=== PATIENT | female | born 1950 | race Caucasian/White ===

== ENCOUNTER 2019-08-05 11:02 | Day surgery (SDC) | payer MEDICARE, SELFPAY ==
[2019-08-03 17:00] VITALS: BMI 29.2
[2019-08-05] VITALS (15 sets, daily range): BP systolic 109–143; BP diastolic 80–110; PULSE 119–122; RESP 10–22; TEMP 36.6; O2SAT 94–100; BMI 29.5
--- NOTE | 2019-08-05 05:52 | ECG_ITS ---
Measurements Intervals [place] Rate: 122 P: TN: 0 QRS: -11 QRSD: 86 T: 0 QT: 151 QTc: 215 Interpretive Statements ATRIAL FLUTTER/TACHYCARDIA WITH RAPID VENTRICULAR RESPONSE DELAYED PRECORDIAL R/S TRANSITION INFERIOR INFARCT, AGE INDETERMINATE NONSPECIFIC ST & T-WAVE ABNORMALITY- ANT/LAT LEADS ABNORMAL ECG Electronically Signed On 08-05-2019 7:23:12 ARCHEOLOGIST CLASSICAL by Layton Crespo D.O.
--- NOTE | 2019-08-05 07:22 | SUR.PREOP ---
PATIENT ARRIVES TO [facility] ROOM 7 FOR UMU/CV WITH DR. KAY, PRE EKG TAKEN AND PATIENT REMAINS IN AFIB. ORIENTED TO UNIT, PROCEDURE EXPLAINED, ALL QUESTIONS ANSWERED, IV STARTED, LABS DRAWN, VITALS OBTAINED AND CONSENT SIGNED.
[2019-08-05 07:41] LABS: Mean Corpuscular HGB Conc 34.2 g/dl (32-36); Mean Corpuscular Hemoglobin 32.2 pg (26-34); Mean Corpuscular Volume 94.1 fl (80-100); Mean Platelet Volume 10.6 fl (7.4-10.4); Platelet Count Result 262 k/mm3 (150-375); Red Blood Count 4.04 M/mm3 (4.2-5.4); Red Cell Distribution Width 13.1 % (11.5-14.5); White Blood Count 8.5 K/mm3 (4.5-10.0)
[2019-08-05 07:54] LABS: INR 2.2; Prothrombin Time 23.7 Seconds (11.1-14.7)
[2019-08-05 08:10] LABS: Blood Urea Nitrogen 10 mg/dL (7-17); Calcium 8.9 mg/dL (8.4-10.2); Carbon Dioxide 25 mmol/L (22-30); Chloride 106 mmol/L (98-107); Estimated CRCL calculation 106 ml/min; Estimated Glomerular Filt Rate > 60; Glucose 137 mg/dL (65-105); Magnesium 1.6 mg/dL (1.6-2.3); Potassium 3.6 mmol/L (3.4-5.0); Sodium 138 mmol/L (137-145)
--- NOTE | 2019-08-05 09:32 | WPDMODSED ---
Patient Data Diagnosis: Atrial flutter with rapid ventricular response Present Complaint: fatigue History and physical update History of present illness: Patient is a very pleasant 69-year-old female with a history of mitral stenosis and regurgitation status post mechanical mitral valve replacement June 2003, diabetes mellitus, hypertension, paroxysmal atrial fibrillation on warfarin with goal INR 2.5-3.5 managed by primary care physician who recently developed atrial flutter with rapid ventricular response after complaining of increasing fatigue and rapid heart rate/palpitations. Sotalol was increased to 80 mg twice daily however atrial flutter persisted. Patient then referred for transesophageal echocardiogram guided elective electrical cardioversion in attempt restore sinus rhythm. Patient has been subtherapeutic for the past month when INR is 2.0, 2.2 and more recently 2.8. INR today was 2.2. She remains in atrial flutter today. Review of systems: No fevers, chills, falls, bleeding, dizziness, lightheadedness, significant change in her weight or diet. No vision changes, headache, bright red blood per rectum, melena, rashes hair skin or nail changes, heat or cold intolerance. No dysphagia, hemoptysis, dysuria/hematuria. No abdominal pain focal weakness or imbalance. Impression: Symptomatic atrial flutter with rapid ventricular response Mechanical mitral valve replacement Chronic anticoagulation subtherapeutic with INR 2.2 History of paroxysmal atrial fibrillation and atrial flutter on sotalol Hypertension Plan of care: Transesophageal echocardiogram guided cardioversion Bridging enoxaparin given subtherapeutic INR in light of her mechanical mitral valve with goal 2.5-3.5. Further recommendation to follow post UMU +/- cardioversion. Procedure to be performed/Plan: Transesophageal echocardiogram guided elective electrical cardioversion Allergies Allergy/AdvReac Type Severity Reaction Status Date / Time codeine Allergy Unknown Verified 04/07/19 13:35 ibuprofen Allergy Unknown Verified 04/07/19 13:36 levofloxacin Allergy Unknown Verified 04/06/10 12:39 Quinolones Allergy Unknown Verified 04/06/10 12:40 Home Medications Medication Instructions Recorded Confirmed Type atorvastatin [Lipitor] 10 mg PO DAILY 08/03/19 08/03/19 History diphenhydramine-acetaminophen 1 tablet PO HS PRN 08/03/19 08/03/19 History fluticasone propionate [Allergy 1 spray INTRANASAL BID PRN 08/03/19 08/03/19 History Relief (fluticasone)] lisinopril 20 mg PO DAILY 08/03/19 08/03/19 History metformin [Glucophage] 850 mg PO BID 08/03/19 08/03/19 History sotalol 80 mg PO BID 08/03/19 08/03/19 History warfarin 3 mg PO 3XW 08/03/19 08/03/19 History warfarin 4 mg PO 4XW 08/03/19 08/03/19 History Current Medications: Active Medications Sodium Chloride (Normal Saline Iv) 1,000 mls @ 30 mls/hr IV CONT .Q24H ALEX Sedation/Anesthesia: No previous sedation/anesthesia problems (including family history). [facility] Family History Family History Sibling Patient's sister is in good health Patient's brother is in good health Family history of malignant neoplasm Family history of type 2 diabetes mellitus Family history of pulmonary embolism Patient's sister is Patient's brother is Acute myocardial infarction Mother Patient's mother is , Onset Age: 96 Grandparent Family history of malignant neoplasm, Onset Age: 59 Social History Social History Smoking status: Never smoker Second hand tobacco smoke exposure: No Alcohol intake: never Gender identity (if verbalized by the patient): Female Physical Exam Pre Procedural Exam: Normal: Appearance, Eyes, Ears, Nose, Neck (Supple, normal range of motion), Throat (Posterior hypopharynx clear, nonerythematous), Airway (Nor
[2019-08-05] MEDS: ENOXAPARIN 80 MG/0.8 ML SYRINGE SUB-Q (09:35)
--- NOTE | 2019-08-05 09:47 | WPDHPUPDATE1 ---
History and Physical Update Update Date/Time: 08/05/19 09:47 History and Physical has been reviewed, including an updated exam of the patient. There are NO changes in the patient's condition. Risks, benefits, and alternatives have been discussed and questions answered. Patient agrees to proceed with procedure.
--- NOTE | 2019-08-05 12:14 | WPDTECDV ---
UMU with Cardioversion Date of procedure: 08/05/19 Procedure Type: Transesophageal echocardiogram guided elective electrical cardioversion Diagnosis: Atrial flutter with rapid ventricular response Indications: Atrial flutter with rapid ventricular response Description of Procedure: Brief history present illness: Patient is a pleasant 69-year-old female with a history of mechanical mitral valve replacement, paroxysmal atrial fibrillation on sotalol and warfarin, with complaints of progressive fatigue and palpitations noted be in atrial flutter with rapid ventricular response at 120 beats per minute 2:1 AV block referred for transesophageal echocardiogram-guided elective electrical cardioversion in attempt to restore sinus rhythm. Procedure in detail: After verbal and written informed consent was obtained the patient risks, benefits, and alternatives explained in detail the patient agreed to proceed with the plan of care as outlined above. Patient was evaluated at bedside in the [facility] procedure room. On examination, neck was supple with normal range of motion, no restrictions to opening of the oral cavity, jaw angle and posterior hypopharynx was clear. Lungs were clear to auscultation. Patient was placed in appropriate 30 to 45 degree angle in a supine, slight left lateral decubitus position. Patient was monitored throughout the study with telemetry, oxygen saturation, end-tidal CO2 monitoring, blood pressure, heart rate, and respirations. Anterior and posterior defibrillator pads placed in the appropriate positions. The posterior hypopharynx was then locally anesthetized using repeated administration of Hurricaine spray as well as gargled viscous lidocaine. After local anesthetic of the posterior hypopharynx was achieved and the oral bite block placed, moderate sedation was administered. Through the oral bite block, the transesophageal echocardiogram probe was advanced into the posterior hypopharynx and into the esophagus easily and without complication. Multiple, multiplanar echocardiographic images were obtained in multiple standard re-projections. Pulsed wave, continuous-wave, and color-flow Doppler were utilized in conjunction with this study. At the conclusion of the study, the transesophageal echocardiogram probe was removed easily and without complication. Patient tolerated the procedure well without difficulty. Patient was in atrial flutter throughout the study. Of note, her INR today was 2.2 which is subtherapeutic raising risk for thromboembolism given associated atrial flutter and mechanical mitral valve. As such, she was given full-dose enoxaparin 1 milligram/kilogram and procedure delayed for nearly 2 hours prior to proceeding with UMU. Patient will be bridged with enoxaparin until her INR is at least 2.5. We discussed this with patient's primary care physician office who has been managing her warfarin and they wish for us to take over management of her anticoagulation. Elective electrical cardioversion: Cardioversion was deferred at a concern for occlusion of the left atrial appendage either of with thrombus and prior to confirmation of possibility of left atrial appendage ligation. Complications: None Sedation: Moderate Sedation/Anesthesia administration: Patient denied previous intolerance or complications with anesthesia/sedation. Please see sedation note for documentation of the pre-procedure physical examination. As noted above, after adequate local anesthesia of the posterior hypopharynx was achieved, a total of 3mg intravenous Versed and a total of 50mcg intravenous Fentanyl in multiple divided doses was utilized for moderate sedation. Sedation start time was 1218 and end time was 1305 for a total of 47 minutes [id number] intra-procedure time. Sedation was administered by a qualified observer Merry Carmichael RN under my supervision with intra-procedure [id number] observation and management throughout the entir
--- NOTE | 2019-08-05 13:21 | SUR.PHASEI ---
PATIENT REMAINS IN [facility] ROOM [address] KAY, UNABLE TO PERFORM CARDIOVERSION. DR. KAY HAS REQUESTED RECORDS FROM PREVIOUS SURGERY IN [place]. PATIENT IS COMFORTABLE AND RESTING.
--- NOTE | 2019-08-05 15:44 | SUR.PHASEI ---
1530-pt given d/c orders and new medication orders. Questions answered and verbalized understanding. AOx4. Pharmacy called to assure prescriptions had been properly received and they indeed have. PIV removed. Taken via wheelchair to waiting vehicle. No distress noted at time of departure.
== END 2019-08-05 14:00 | disposition home or self-care (01) ==
PROVIDERS: PCP Family Medicine; Visit Provider Internal Medicine Cardiovascular Disease
PROC: 5A2204Z Restoration of Cardiac Rhythm, Single (ICD-10-PCS; principal; 2019-08-05 08:30)
PROC: (CPT 93312; 2019-08-05 08:30)
DX: I48.92 Unspecified atrial flutter (principal); I48.0 Paroxysmal atrial fibrillation; I10 Essential (primary) hypertension; E11.9 Type 2 diabetes mellitus without complications; Z79.01 Long term (current) use of anticoagulants; Z95.2 Presence of prosthetic heart valve
CPT/HCPCS: 36415; 80048; 83735; 85027; 85610; 92960; 93005; 93312; 93320; 93325; J1650; J2250; J3010; J7030

== ENCOUNTER 2019-12-27 13:17 | Outpatient (CLI) | payer MEDICARE, SELFPAY ==
[2019-12-27 13:47] LABS: Hematocrit 39.4 % (37.0-47.0); Hemoglobin 12.9 g/dL (12.0-15.0); Mean Corpuscular HGB Conc 32.7 g/dl (32-36); Mean Corpuscular Hemoglobin 30.9 pg (26-34); Mean Corpuscular Volume 94.3 fl (80-100); Mean Platelet Volume 9.9 fl (7.4-10.4); Platelet Count Result 246 k/mm3 (150-375); Red Blood Count 4.18 M/mm3 (4.2-5.4); White Blood Count 7.4 K/mm3 (4.5-10.0)
[2019-12-27 14:06] LABS: Alanine Aminotransferase 16 U/L (4-35); Albumin Level 4.5 g/dL (3.5-5.1); Alkaline Phosphatase 40 U/L (38-126); Aspartate Amino Transferase 30 U/L (14-36); Bilirubin,Total 0.5 mg/dL (0.2-1.3); Blood Urea Nitrogen 9 mg/dL (7-17); Calcium 9.2 mg/dL (8.4-10.2); Carbon Dioxide 30 mmol/L (22-30); Chloride 104 mmol/L (98-107); Cholesterol 183 mg/dL (0-200); Estimated Glomerular Filt Rate > 60; Glucose 179 mg/dL (65-105); HDL Direct 54 mg/dL; Potassium 4.3 mmol/L (3.4-5.0); Sodium 138 mmol/L (137-145); Triglycerides 280 mg/dL (<150)
[2019-12-27 14:16] LABS: LDL Cholesterol Direct 85 mg/dL
== END 2019-12-27 13:18 | disposition home or self-care (01) ==
PROVIDERS: PCP Family Medicine; Visit Provider Family Medicine
DX: I10 Essential (primary) hypertension (principal); E11.9 Type 2 diabetes mellitus without complications; E78.5 Hyperlipidemia, unspecified
CPT/HCPCS: 36415; 80053; 80061; 83036; 85027

== ENCOUNTER 2020-05-01 10:32 | Outpatient (CLI) | payer MEDICARE, SELFPAY ==
[2020-05-01 11:01] LABS: Basophils Absolute Auto 0.1 K/mm3 (0.0-0.1); Basophils Percent Auto 0.7 % (0.2-1.2); Eosinophils Absolute Auto 0.5 K/mm3 (0-0.3); Eosinophils Percent Auto 7.1 % (0-4.4); Hematocrit 38.6 % (37.0-47.0); Hemoglobin 12.9 g/dL (12.0-15.0); Immature Granulocyte Absolute 0.03 K/mm3 (0.00-0.031); Immature Granulocyte Percent A 0.4 % (0-0.5); Lymphocytes Absolute Auto 2.35 K/mm3 (0.9-3.2); Lymphocytes Percent Auto 31.6 % (18.3-44.2); Mean Corpuscular HGB Conc 33.4 g/dl (32-36); Mean Corpuscular Hemoglobin 31.3 pg (26-34); Mean Corpuscular Volume 93.7 fl (80-100); Mean Platelet Volume 10.2 fl (7.4-10.4); Monocytes Absolute Auto 0.5 K/mm3 (0.1-0.6); Monocytes Percent Auto 7.1 % (2.6-8.5); Neutrophils Absolute Auto 3.9 K/mm3 (1.3-6.7); Neutrophils Percent Auto 53.1 % (45.5-73.1); Platelet Count Result 263 k/mm3 (150-375); Red Blood Count 4.12 M/mm3 (4.2-5.4); Red Cell Distribution Width 12.8 % (11.5-14.5); White Blood Count 7.4 K/mm3 (4.5-10.0)
[2020-05-01 11:18] LABS: Alanine Aminotransferase 19 U/L (4-35); Albumin Level 4.5 g/dL (3.5-5.1); Alkaline Phosphatase 43 U/L (38-126); Anion Gap 10 mmol/L (8-16); Aspartate Amino Transferase 28 U/L (14-36); Bilirubin,Total 0.4 mg/dL (0.2-1.3); Blood Urea Nitrogen 15 mg/dL (7-17); Carbon Dioxide 24 mmol/L (22-30); Chloride 103 mmol/L (98-107); Cholesterol 184 mg/dL (0-200); Estimated Glomerular Filt Rate > 60; Glucose 206 mg/dL (65-105); HDL Direct 57 mg/dL; Potassium 4.5 mmol/L (3.4-5.0); Sodium 137 mmol/L (137-145); Triglycerides 269 mg/dL (<150)
[2020-05-01 11:29] LABS: LDL Cholesterol Direct 83 mg/dL
== END 2020-05-01 10:33 | disposition home or self-care (01) ==
PROVIDERS: PCP Family Medicine; Visit Provider Family Medicine
DX: E78.5 Hyperlipidemia, unspecified (principal); I10 Essential (primary) hypertension; E11.40 Type 2 diabetes mellitus with diabetic neuropathy, unspecified
CPT/HCPCS: 36415; 80053; 80061; 83036; 85025

== ENCOUNTER 2020-08-01 13:22 | Outpatient (CLI) | payer MEDICARE, SELFPAY ==
[2020-08-01 13:47] LABS: Hemoglobin A1C 7.2 % (<5.7)
== END 2020-08-01 13:23 | disposition home or self-care (01) ==
LOC: ANHLAB 13:23
PROVIDERS: PCP Nurse Practitioner Family; Visit Provider Nurse Practitioner Family
DX: E11.9 Type 2 diabetes mellitus without complications (principal)
CPT/HCPCS: 36415; 83036

== ENCOUNTER 2021-02-02 13:54 | Outpatient (CLI) | payer MEDICARE, MEDICAID, SELFPAY ==
[2021-02-02 14:33] LABS: Hematocrit 38.1 % (37.0-47.0); Hemoglobin 12.7 g/dL (12.0-15.0); Mean Corpuscular HGB Conc 33.3 g/dl (32-36); Mean Corpuscular Hemoglobin 31.4 pg (26-34); Mean Corpuscular Volume 94.3 fl (80-100); Mean Platelet Volume 10.5 fl (7.4-10.4); Platelet Count Result 280 k/mm3 (150-375); Red Blood Count 4.04 M/mm3 (4.2-5.4); Red Cell Distribution Width 12.8 % (11.5-14.5); White Blood Count 8.4 K/mm3 (4.5-10.0)
[2021-02-02 14:45] LABS: Alanine Aminotransferase 17 U/L (4-35); Albumin Level 4.6 g/dL (3.5-5.1); Alkaline Phosphatase 35 U/L (38-126); Anion Gap 7 mmol/L (8-16); Aspartate Amino Transferase 32 U/L (14-36); Bilirubin,Total 0.4 mg/dL (0.2-1.3); Blood Urea Nitrogen 12 mg/dL (7-17); Calcium 9.7 mg/dL (8.4-10.2); Carbon Dioxide 24 mmol/L (22-30); Chloride 107 mmol/L (98-107); Cholesterol 158 mg/dL (0-200); Estimated Glomerular Filt Rate > 60; Glucose 111 mg/dL (65-105); HDL Direct 54 mg/dL; Potassium 4.3 mmol/L (3.4-5.0); Sodium 138 mmol/L (137-145); Triglycerides 273 mg/dL (<150)
[2021-02-02 14:55] LABS: LDL Cholesterol Direct 59 mg/dL
[2021-02-02 15:10] LABS: Hemoglobin A1C 6.4 % (<5.7)
[2021-02-02 17:00] LABS: Creatinine Urine 160.6 mg/dL
[2021-02-02 17:05] LABS: MALB Creatinine Ratio 31.1 mg/g (0-30)
== END 2021-02-02 13:55 | disposition home or self-care (01) ==
PROVIDERS: PCP Family Medicine; Visit Provider Nurse Practitioner Family
DX: E11.9 Type 2 diabetes mellitus without complications (principal); I10 Essential (primary) hypertension; E78.5 Hyperlipidemia, unspecified
CPT/HCPCS: 36415; 80053; 80061; 82043; 83036; 85027

== ENCOUNTER 2021-05-28 14:08 | Outpatient (CLI) | payer MEDICARE, MEDICAID, SELFPAY ==
[2021-05-28 14:54] LABS: Anion Gap 9 mmol/L (8-16); Blood Urea Nitrogen 13 mg/dL (7-17); Calcium 9.3 mg/dL (8.4-10.2); Carbon Dioxide 25 mmol/L (22-30); Chloride 106 mmol/L (98-107); Estimated Glomerular Filt Rate > 60; Glucose 114 mg/dL (65-110); Potassium 4.7 mmol/L (3.4-5.0); Sodium 140 mmol/L (137-145)
== END 2021-05-28 14:09 | disposition home or self-care (01) ==
PROVIDERS: PCP Family Medicine; Visit Provider Internal Medicine Cardiovascular Disease
DX: I15.2 Hypertension secondary to endocrine disorders (principal); E11.59 Type 2 diabetes mellitus with other circulatory complications; E11.69 Type 2 diabetes mellitus with other specified complication; E78.5 Hyperlipidemia, unspecified
CPT/HCPCS: 36415; 80048

== ENCOUNTER 2021-09-19 14:13 | Outpatient (CLI) | payer MEDICARE, MEDICAID, SELFPAY ==
--- NOTE | ~2021-09-19 | DEXA_ITS ---
Bone Density Report Name: ASHU ELI Age: 71 Sex: Female Ethnicity: White Date of : 1950 Indication: osteopenia; height loss; prior fracture; hysterectomy; postmenopausal Referring Provider: Sylvia Zuniga Study: Bone densitometry was performed. Exam Date: September 19, 2021 Accession number: [id number] Bone Density: Region BMD T-score Z-score Classification AP Spine (L1, L3) 1.037 0.2 2.4 Normal Femoral Neck (Left) 0.709 -1.3 0.7 Osteopenia Total Hip (Left) 0.863 -0.7 1.0 Normal Total Hip Bilateral Avg 0.802 -1.1 0.5 Osteopenia Femoral Neck (Right) 0.606 -2.2 -0.2 Osteopenia Total Hip (Right) 0.741 -1.6 0.0 Osteopenia World Health Organization criteria for BMD impression classify patients as: Normal (T-score at or above -1.0), Osteopenia (T-score between -1.0 and -2.5), or Osteoporosis (T-score at or below -2.5). 10-year Fracture Risk(1): Major Osteoporotic Fracture 20% Hip Fracture 4.6% Reported Risk Factors: [place] (), Neck BMD=0.606, BMI=29.1, previous fracture (1) FRAX(R) Version 3.08. Fracture probability calculated for an untreated patient. Fracture probability may be lower if the patient has received treatment. Previous Exams: Region Exam Age BMD T-score BMD Change BMD Change Date g/cm2 vs Baseline vs Previous AP Spine(L1, L3) 09/19/2021 71 1.037 0.2 0.011(1.1%)# 0.091(9.7%)# 01/15/2006 55 0.945 -0.6 -0.081(-7.9%)* -0.081(-7.9%)* 11/14/2003 53 1.026 0.1 Total Hip(Left) 09/19/2021 71 0.863 -0.7 -0.042(-4.6%)# -0.014(-1.6%)# 01/15/2006 55 0.876 -0.5 -0.028(-3.1%)* -0.028(-3.1%)* 11/14/2003 53 0.904 -0.3 Total Hip(Right) 09/19/2021 71 0.741 -1.6 -0.105(-12.4%) -0.072(-8.8%)# 01/15/2006 55 0.813 -1.1 -0.033(-3.9%)* -0.033(-3.9%)* 11/14/2003 53 0.846 -0.8 *Denotes significance at 95% confidence level, LSC for AP Spine = 0.022 g/cm2, LSC for Total Hip = 0.027 g/cm2 Clinical Information Provided by Patient: Has had a low trauma fracture Has the following medical conditions: Hysterectomy Patient maximum height was 65 Menopause Age: 41 Drinks caffeinated beverages Onset of menses at age 10 Number of children 0 Impression: The patient has low bone mass, based on the Right Femoral Neck T-score. The patient has an estimated ten-year risk of hip fracture of 4.6% and an estimated ten-year risk of major fracture of 20%, based on the WHO FRAX algorithm. The patient
--- NOTE | ~2021-09-19 | MM_ITS ---
EXAMINATION: MM screening girish BI w destinee HISTORY: Screening mammogram, family history of breast cancer in her sister. TECHNIQUE: Craniocaudal and mediolateral oblique 3-D tomosynthesis images were obtained and synthetic 2-D images were generated. CAD analysis was submitted and interpreted. COMPARISON: 07/22/2019, 08/13/2016, 10/18/2014 BREAST PARENCHYMAL COMPOSITION: There are scattered areas of fibroglandular density. FINDINGS: Scattered benign-appearing calcifications are present. There is no evidence of suspicious m ass, calcification, or architectural distortion to suggest malignancy in either breast. There has bee n no suspicious interval change. IMPRESSION: 1. No mammographic evidence of malignancy. 2. Recommend routine screening mammography in one year. BI-RADS Category 2: Benign finding(s). Reviewed, dictated and finalized at location A. ING MACHINE SETTER
== END 2021-09-19 14:14 | disposition home or self-care (01) ==
LOC: ANHIMG 14:19
PROVIDERS: PCP Family Medicine; Visit Provider Nurse Practitioner Family
DX: Z12.31 Encounter for screening mammogram for malignant neoplasm of breast (principal); Z78.0 Asymptomatic menopausal state; M85.852 Other specified disorders of bone density and structure, left thigh; M85.851 Other specified disorders of bone density and structure, right thigh
CPT/HCPCS: 77063; 77067; 77080

== ENCOUNTER 2022-07-24 14:48 | Outpatient (CLI) | payer MEDICARE, MEDICAID, SELFPAY ==
[2022-07-24 15:12] LABS: Basophils Absolute Auto 0.1 K/mm3 (0.0-0.1); Basophils Percent Auto 0.8 % (0.2-1.2); Eosinophils Absolute Auto 0.3 K/mm3 (0-0.3); Hematocrit 37.6 % (37.0-47.0); Hemoglobin 12.4 g/dL (12.0-15.0); Immature Granulocyte Absolute 0.03 K/mm3 (0.00-0.031); Immature Granulocyte Percent A 0.4 % (0-0.5); Lymphocytes Absolute Auto 2.09 K/mm3 (0.9-3.2); Lymphocytes Percent Auto 28.2 % (18.3-44.2); Mean Corpuscular Hemoglobin 31.9 pg (26-34); Mean Corpuscular Volume 96.7 fl (80-100); Mean Platelet Volume 10.1 fl (7.4-10.4); Monocytes Absolute Auto 0.6 K/mm3 (0.1-0.6); Monocytes Percent Auto 7.8 % (2.6-8.5); Neutrophils Absolute Auto 4.4 K/mm3 (1.3-6.7); Neutrophils Percent Auto 58.8 % (45.5-73.1); Platelet Count Result 252 k/mm3 (150-375); Red Blood Count 3.89 M/mm3 (4.2-5.4); White Blood Count 7.4 K/mm3 (4.5-10.0)
[2022-07-24 15:20] LABS: Alanine Aminotransferase 31 U/L (6-35); Albumin Level 4.8 g/dL (3.5-5.1); Alkaline Phosphatase 43 U/L (38-126); Anion Gap 15 mmol/L (8-16); Aspartate Amino Transferase 39 U/L (14-36); Bilirubin,Total 0.5 mg/dL (0.2-1.3); Blood Urea Nitrogen 15 mg/dL (7-17); Calcium 9.8 mg/dL (8.4-10.2); Carbon Dioxide 26 mmol/L (22-30); Chloride 100 mmol/L (98-107); Cholesterol 199 mg/dL (0-200); Estimated Glomerular Filt Rate > 60; Glucose 135 mg/dL (65-110); HDL Direct 54 mg/dL; Potassium 4.9 mmol/L (3.4-5.0); Sodium 141 mmol/L (137-145); Triglycerides 318 mg/dL (<150)
[2022-07-24 15:23] LABS: Hemoglobin A1C 7.1 % (<5.7)
[2022-07-24 15:31] LABS: LDL Cholesterol Direct 80 mg/dL
[2022-07-24 15:34] LABS: Creatinine Urine 115.5 mg/dL
[2022-07-24 15:35] LABS: MALB Creatinine Ratio 9.4 mg/g (0-30); Microalbumin Urine Random 10.9 mg/L (0-16.7)
== END 2022-07-24 14:49 | disposition home or self-care (01) ==
LOC: ANHLAB 14:51
PROVIDERS: PCP Family Medicine; Visit Provider Nurse Practitioner Family
DX: E11.9 Type 2 diabetes mellitus without complications (principal); I10 Essential (primary) hypertension; E78.5 Hyperlipidemia, unspecified
CPT/HCPCS: 36415; 80053; 80061; 82043; 83036; 85025

== ENCOUNTER 2023-03-04 15:13 | Outpatient (CLI) | payer MEDICARE, MEDICAID, SELFPAY ==
[2023-03-04 19:46] LABS: Alanine Aminotransferase 21 U/L (6-35); Albumin Level 4.4 g/dL (3.5-5.1); Alkaline Phosphatase 45 U/L (38-126); Anion Gap 10 mmol/L (8-16); Aspartate Amino Transferase 34 U/L (14-36); Bilirubin,Total 0.6 mg/dL (0.2-1.3); Blood Urea Nitrogen 18 mg/dL (7-17); Calcium 9.2 mg/dL (8.4-10.2); Carbon Dioxide 26 mmol/L (22-30); Chloride 103 mmol/L (98-107); Estimated Glomerular Filt Rate > 60; Glucose 192 mg/dL (65-110); Potassium 4.7 mmol/L (3.4-5.0); Sodium 139 mmol/L (137-145)
[2023-03-04 19:52] LABS: Hemoglobin A1C 7.4 % (<5.7)
== END 2023-03-04 15:14 | disposition home or self-care (01) ==
LOC: ANHGOSHLAB 15:14
PROVIDERS: PCP Family Medicine; Visit Provider Family Medicine
DX: E11.9 Type 2 diabetes mellitus without complications (principal); I10 Essential (primary) hypertension
CPT/HCPCS: 36415; 80053; 83036

== ENCOUNTER 2024-07-19 15:16 | Outpatient (CLI) | payer MEDICARE, MEDICAID, SELFPAY ==
[2024-07-19 19:45] LABS: Basophils Absolute Auto 0.1 K/mm3 (0.0-0.1); Basophils Percent Auto 0.9 % (0.2-1.2); Eosinophils Absolute Auto 0.3 K/mm3 (0-0.3); Eosinophils Percent Auto 3.6 % (0-4.4); Hematocrit 40.1 % (37.0-47.0); Hemoglobin 13.8 g/dL (12.0-15.0); Immature Granulocyte Absolute 0.01 K/mm3 (0.00-0.031); Immature Granulocyte Percent A 0.1 % (0-0.5); Lymphocytes Absolute Auto 1.65 K/mm3 (0.9-3.2); Lymphocytes Percent Auto 18.1 % (18.3-44.2); Mean Corpuscular HGB Conc 34.4 g/dl (32-36); Mean Corpuscular Hemoglobin 33.3 pg (26-34); Mean Corpuscular Volume 96.6 fl (80-100); Mean Platelet Volume 10.4 fl (7.4-10.4); Monocytes Absolute Auto 0.7 K/mm3 (0.1-0.6); Monocytes Percent Auto 7.4 % (2.6-8.5); Neutrophils Absolute Auto 6.4 K/mm3 (1.3-6.7); Neutrophils Percent Auto 69.9 % (45.5-73.1); Platelet Count Result 237 k/mm3 (150-375); Red Blood Count 4.15 M/mm3 (4.2-5.4); White Blood Count 9.1 K/mm3 (4.5-10.0)
[2024-07-19 19:54] LABS: Alanine Aminotransferase 30 U/L (6-35); Albumin Level 4.6 g/dL (3.5-5.1); Alkaline Phosphatase 55 U/L (38-126); Anion Gap 10 mmol/L (4-12); Aspartate Amino Transferase 40 U/L (14-36); Bilirubin,Total 0.8 mg/dL (0.2-1.3); Blood Urea Nitrogen 14 mg/dL (7-17); Calcium 9.7 mg/dL (8.4-10.2); Carbon Dioxide 27 mmol/L (22-30); Chloride 104 mmol/L (98-107); Cholesterol 206 mg/dL (0-200); Estimated Glomerular Filt Rate > 60; Glucose 204 mg/dL (65-110); HDL Direct 54 mg/dL; Potassium 4.2 mmol/L (3.4-5.0); Sodium 141 mmol/L (137-145); Triglycerides 336 mg/dL (<150)
[2024-07-19 20:06] LABS: LDL Cholesterol Direct 77 mg/dL
[2024-07-19 20:33] LABS: Creatinine Urine 58.6 mg/dL
[2024-07-19 20:43] LABS: MALB Creatinine Ratio 20.1 mg/g (0-30); Microalbumin Urine Random 11.8 mg/L (0-16.7)
[2024-07-19 21:18] LABS: Hemoglobin A1C 7.1 % (<5.7)
== END 2024-07-19 15:17 | disposition home or self-care (01) ==
LOC: ANHGOSHLAB 15:17
PROVIDERS: PCP Nurse Practitioner Family; Visit Provider Nurse Practitioner Family
DX: E78.5 Hyperlipidemia, unspecified (principal); E11.9 Type 2 diabetes mellitus without complications; E03.9 Hypothyroidism, unspecified; I10 Essential (primary) hypertension
CPT/HCPCS: 36415; 80053; 80061; 82043; 83036; 84443; 85025

== ENCOUNTER 2024-09-22 13:50 | Outpatient (CLI) | payer MEDICARE, MEDICAID, SELFPAY ==
--- NOTE | 2024-09-22 14:30 | NEURO_ITS ---
Impression: # Known diabetic complains of weakness of hands. ? # Bilateral ulnar neuropathy across the elbows. ? # Needle/EMG exam abnormal with denervation changes in bilateral ADM and 1st DI. ? # Clinical correlation recommended. ?Nerve Conduction Studies Anti Sensory Summary Table ?Stim Site NR Peak (ms) P-T Amp (?V) Site1 Site2 Delta-P (ms) Dist (cm) Jairo (m/s) Left Median Anti Sensory (2-3nd Digit) Wrist ? 3.3 23.2 Wrist 2-3nd Digit 3.3 14.0 42 Wrist ? 3.5 52.0 Wrist 2-3nd Digit 3.3 14.0 42 Right Median Anti Sensory (2-3nd Digit) Wrist ? 3.6 15.4 Wrist 2-3nd Digit 3.6 14.0 39 Wrist ? 3.7 24.6 Wrist 2-3nd Digit 3.6 14.0 39 Left Radial Anti Sensory (Base 1st Digit) Wrist ? 2.3 11.6 Wrist Base 1st Digit 2.3 0.0 Right Radial Anti Sensory (Base 1st Digit) Wrist ? 2.1 15.2 Wrist Base 1st Digit 2.1 0.0 Left Ulnar Anti Sensory (5th Digit) Wrist ? 2.9 28.9 Wrist 5th Digit 2.9 14.0 48 Right Ulnar Anti Sensory (5th Digit) Wrist ? 6.7 18.6 Wrist 5th Digit 6.7 14.0 21 Motor Summary Table ?Stim Site NR Onset (ms) O-P Amp (mV) Site1 Site2 Delta-0 (ms) Dist (cm) Jairo (m/s) Left Median Motor (Abd Poll Brev) Wrist ? 4.0 2.7 Elbow Wrist 5.0 28.0 56 Elbow ? 9.0 1.9 Right Median Motor (Abd Poll Brev) Wrist ? 4.1 3.6 Elbow Wrist 4.6 27.0 59 Elbow ? 8.7 3.3 Left Ulnar Motor (Abd Dig Minimi) Wrist ? 3.3 3.3 A Elbow Wrist 10.9 30.0 28 A Elbow ? 14.2 1.6 B Elbow Wrist 4.0 22.0 55 B Elbow ? 7.3 1.7 Right Ulnar Motor (Abd Dig Minimi) Wrist ? 4.4 0.9 A Elbow Wrist 7.8 30.0 38 A Elbow ? 12.2 0.1 B Elbow Wrist 3.3 19.0 58 B Elbow ? 7.7 0.3 F Wave Studies ?NR F-Lat (ms) L-R F-Lat (ms) Left Median (Mrkrs) (Abd Poll Brev) ? 28.17 0.29 Right Median (Mrkrs) (Abd Poll Brev) ? 27.88 0.29 Left Ulnar (Mrkrs) (Abd Dig Min) ? 25.56 0.87 Right Ulnar (Mrkrs) (Abd Dig Min) ? 26.43 0.87 EMG ?Side Muscle Nerve Root Ins Act Fibs Amp Dur Recrt Comment Right 1stDorInt Ulnar C8-T1 Nml Nml Incr >12ms +1 Right Ext Indicis Radial (Post Int) C7-8 Nml Nml Nml Nml Nml Right Ext Digitorum Radial (Post Int) C7-8 Nml Nml Nml Nml Nml Right BrachioRad Radial C5-6 Nml Nml Nml Nml Nml Right PronatorTeres Median C6-7 Nml Nml Nml Nml Nml Right Abd Poll Brev Median C8-T1 Nml Nml Nml Nml Nml Right ABD Dig Min Ulnar C8-T1 Nml Nml Incr >12ms +1 Left 1stDorInt Ulnar C8-T1 Nml Nml Incr >12ms +1 Left Ext Indicis Radial (Post Int) C7-8 Nml Nml Nml Nml Nml Left Ext Digitorum Radial (Post Int) C7-8 Nml Nml Nml Nml Nml Left BrachioRad Radial C5-6 Nml Nml Nml Nml Nml Left PronatorTeres Median C6-7 Nml Nml Nml Nml Nml Left Abd Poll Brev Median C8-T1 Nml Nml Nml Nml Nml Left ABD Dig Min Ulnar C8-T1 Nml Nml Incr >12ms +1 MTDD
== END 2024-09-22 13:51 | disposition home or self-care (01) ==
LOC: ANHNEURO 13:52
PROVIDERS: PCP Nurse Practitioner Family; Visit Provider Family Medicine
DX: R20.2 Paresthesia of skin (principal); R20.0 Anesthesia of skin; G56.23 Lesion of ulnar nerve, bilateral upper limbs; R94.131 Abnormal electromyogram [EMG]
CPT/HCPCS: 95886; 95911

== ENCOUNTER 2025-03-16 00:56 | Day surgery (SDC) | payer MEDICARE, MEDICAID, SELFPAY ==
[2025-03-14 11:11] VITALS: BMI 27.3
--- NOTE | 2025-03-14 11:28 | PC.NURSE ---
Report to the Outpatient Waiting Room, entrance under the green pavilion located off [facility], at time __10:00am on date ___03/16/25____. Planned Procedure Time: _12:00pm .? Time changes happen often and if your time is changed the preop area will call you the afternoon before. - You and your visitor will be asked to self-screen and do not enter if you have any COVID symptoms. Please call surgeon if you need to reschedule. - A mask is optional within the hospital at this time. Patients may have- No food or drink from midnight until time of surgery and no smoking, or chewing tobacco (or any form of nicotine). No chewing gum, candy or mints. Take only the following medications with a SIP of water on the morning of surgery: __Sotalol, Gabapentin and Tylenol if needed DO NOT STOP ANY OF YOUR OTHER PRESCRIPTION MEDICATIONS PRIOR TO SURGERY EXCEPT THE FOLLOWING Hold all vitamins and supplements for 3 days per anesthesiologist. Medications to discontinue per physician Coumadin (Held since last week ) and Bridging preop- last dose of Enoxaparin the AM the day before Surgery ____ Date to take last dose____Enoxaparin 03/15/25 at 0900am Please no make-up, nail malay, hairspray, perfume, deodorant, or body powder the day of surgery.? No jewelry (including any body piercings) or valuables the day of surgery, leave them at home.? Please take a shower or bath the night before, or the morning of, surgery with an antibacterial soap.? Wear comfortable, loose fitting clothing.? HIBICLEANSE pt will use also as needed - Jewelry must be removed prior to entering the operating room.? Rings and piercings that are not removed may be cut off. - The hospital will not accept responsibility for valuables.? - Please leave all valuables, including medications, at home the day of surgery. If you are going home after surgery, a licensed regional tanker truck driver must drive you home.? - NO public transportation without another adult if you receive anesthesia. - We recommend that an adult stay with you for 24 hours following discharge. - We also recommend that you do not drive, make important decision, drink alcoholic beverages, or take any drugs that were not prescribed by your health care provider for at least 24 hours after your discharge time. Follow any additional instructions given to you from your surgeon. Telephone instructions given to __Patient and asked if any additional questions and then verbalized understanding. Patient advised to call surgeon office or pre surgery nurse liaison [phone] if any additional questions.
--- OUTSIDE RECORDS SUMMARY | 2025-03-16 01:03 | XMS_ITS | Encounter Summary ---
Author Organization [facility] Healthcare Address [address] [place] [id number] Care Team Providers Care Transitional Care Manager Name Role Phone Amado Wray MD Primary Care Provider Encounter Details Date Type Department Care Team ([facility] st Contact Info) Description 01/25/2025 Orders Only [facility] [place] [address] [place] [address] Scanning, Provider Social History Tobacco Use Types Packs/Day Years Used Date Smoking Tobacco: Never Smokeless Tobacco: Never Alcohol Use Standard Drinks/Week Comments No 0 (1 standard drink = 0.6 oz pur e alcohol) AUDIT-C Answer Date Recorded Q1: How often do you have a drink containing alcohol? Never 08/06/2024 Q2: How many drinks containi ng alcohol do you have on a typical day when you are drinking? Patient does not drink Q3: How often do you have si x or more drinks on one occasion? Never 08/06/2024 Personal Safety Answer Date Recorded Have you ever been in or are you currently in a harmful physical or emotional relationship or is someone making you feel afraid or unsafe? 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
--- OUTSIDE RECORDS SUMMARY | 2025-03-16 01:03 | XMS_ITS | Encounter Summary ---
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 Gender Identity Not on file Sexual Orientation Not on file documented as of this encounter Plan of Treatment Not on file documented as of this encounter Procedures Procedure Name Priority Date/Time Associated Diagnosis Comments SCAN - LABS 01/18/2025 documented in this encounter Results * SCAN - LABS (01/18/2025) us Provider Scanning Edited Result - Final documented in this encounter Visit Diagnoses Not on filedocumented in this encounter Care Teams Automatic Serging Machine Operator Relationship Specialty Start Date End Date Amado Wray MD PCP - General Family Practice 03/08/22 documented as of this encounter
--- OUTSIDE RECORDS SUMMARY | 2025-03-16 01:04 | XMS_ITS | Encounter Summary ---
Author Organization [facility] Address [address] [place] [address] Care Team Providers Care Cigar Head Puncher Name Role Phone Amado Wray MD Primary Care Provider Jose De Jesus Mcgee MD Unavailable [phone] Encounter Details Date Type Department Care Team (Late st Contact Info) Description 03/14/2025 Orders Only [facility] [address] [place] [address] Sylvia Zuniga, TECHNICAL MAINTENANCE TECHNICIAN [address] [facility] [address] [address] Social History Tobacco Use Types Packs/Day Years Used Date Smoking Tobacco: Never Assessed Comments Unknown Sex and Gender Information Value Date Recorded Sex Assigned at Not on file Legal Sex Female 8:17 PM CDT Gender Identity Not on file Sexual Orientation Not on file documented as of this encounter Plan of Treatment Not on file documented as of this encounter Results * MICROALBUMIN CREATININE RATIO (MICROALBUMIN/ALBUMIN) (03/14/2025 1:47 PM CDT) CREATININE (U) 76.5 28 - 217 MG/DL 03/14/2025 2:18 PM CDT [facility] MICROALBUMIN (U) 1.6 <2.0 mg/dL 03/14/20 2:18 PM CDT [facility] ALBUMIN/CREAT RATIO 20.9 <30.0 MG/G 03/14/2025 2:18 PM CDT [facility] URINE SPECIMEN / Unknown 03/14/2025 1:47 PM CDT LisetteKrystal Zuniga [facility] URINE ORDERABLES Final Resul t Performing Organization Address [facility]/ZIP Co de Phone Number [facility] [address] [place] [address], [place] [phone] * (ABNORMAL) HEMOGLOBIN, GLYCOSYLATED (03/14/2025 12:53 PM CDT) HGB A1C 8.2(H) <5.7 % 03/14/2025 2:27 PM CDT [facility] Comment: INCREASED RISK OF DIABETES <5.7% NON-DIABETES 5.7-6.4% INCREASED RISK FOR FUTURE DIABETES > OR = 6.5 CONSISTENT WITH DIABETES STANDARDS OF MEDICAL CARE IN DIABETES-2010 DIABETES CARE, 33(SUPP 1): S1-S61,2010 ESTIMATED AVG GLUCOSE 189 mg/dL 03/14/2025 2:27 PM CDT [facility] 03/14/2025 12:5 3 PM CDT [facility] Final Result Performing Organization Address [facility] Co de Phone Number [facility] [address] [place] [address], [place] [phone] * VITAMIN D, 25 OH (03/14/2025 12:53 PM CDT) VITAMIN D 25 HYDROXY S/P/B 33 30 - 100 NG/ML 03/14/2025 8:31 PM CDT [facility] Comment: INTERPRETATION DEFICIENT <20 INSUFFICIENT 20-29 SUFFICIENT 30-100 03/14/2025 12:5 3 PM CDT [facility] TECHNICAL MAINTENANCE TECHNICIAN LABORATORY Final Result Performing Organization Address City/State/[facility] Co de Phone Number [facility] [address] [place] [address], * (ABNORMAL) LIPID PANEL (03/14/2025 12:53 PM CDT) CHOLESTEROL 192 <200.0 MG/DL 03/14/2025 1:28 PM CDT [facility] TRIGLYCERIDES 261(H) <150 MG/DL 03/14/2025 1:28 PM CDT [facility] HDL 48 >40.0 MG/DL 03/14/2025 1:28 PM CDT [facility] LDL (CALCULATED) 92 <100 MG/DL 03/14/2025 1:28 PM CDT [facility] Comment:CALCULATED USING THE FRIEDEWALD EQUATION NON HDL CHOLESTEROL 144(H) <130 MG/DL 03/14/2025 1:28 PM CDT [facility] CHOL/HDL RATIO 4.0 0.0 - 4.5 03/14/2025 1:28 PM CDT [facility] VLDL CALCULATION 52 5 - 55 MG/DL 03/14/2025 1:28 PM CDT [facility] LIPID INTERPRETATION 03/14/2025 1:28 PM CDT [facility] Comment: NIH CONCENSUS REPORT RECOMMENDATIONS: ADULT CHILD LOW RISK: CHOLESTEROL <200 <170 TRIGLYCERIDE <150 --- HDL >=60 --- LDL <100 <110 BORDERLINE: CHOLESTEROL 200-239 170-199 TRIGLYCERIDE 150-199 --- HDL 40-59 --- LDL 100-159 110-129 HIGH RISK: CHOLESTEROL >=240 >=200 TRIGLYCERIDE >=200 --- HDL <40 --- LDL >=160 >=130 03/14/2025 12:5 3 PM CDT Sylvia Zuniga TECHNICAL MAINTENANCE TECHNICIAN LABORATORY Final Result Performing Organization Address City/[facility]/ZIP Co de Phone Number [facility] [address] [place] [address], * TSH W/REFLEX (03/14/2025 12:53 PM CDT) TSH 1.060 0.358 - 3.74 uIU/ML 03/14/2025 1:28 PM CDT [facility] Comment: HIGH DOSES OF BIOTIN MAY INTERFERE WITH THIS TEST RESULT. CORRELATION TO CLINICAL HISTORY AND PRESENTATION RECOMMENDED. FREE T4 NOT INDICATED 03/14/2025 12:5 3 PM CDT Sylvia Zuniga [facility] LABORATORY Final Result Performing Organization Address [facility] Co de Phone Number [facility] [address] [place] [address], * (ABNORMAL) COMPREHENSIVE METABOLIC PANEL (03/14/2025 12:53 PM CDT) GLUCOSE 243(H) 70 - 99 MG/DL 03/14/2025 1:28 PM CDT [facility] BUN 17 7 - 18 MG/DL 03/14/2025 1:28 PM CDT [facility] CREATININE S/P/B 0.98 0.55 - 1.02 MG/DL 03/14/2025 1:28 PM CDT [facility] SODIUM S/P/B 139 136 - 145 MMOL/L 03/14/2025 1:28 PM CDT [facility] POTASSIUM S/P/B 4.2 3.5 - 5.1 MMOL/L 03/14/2025 1:28 PM CDT [facility] CHLORIDE S/P/B 104 100 - 108 MMOL/L 03/14/2025 1:28 PM CDT [facility] CO2 25.7 21 - 32 MMOL/L 03/14/2025 1:28 PM [facility] CALCIUM S/P/B 9.3 8.5 - 10.1 MG/DL 03/14/2025 1:28 PM [facility] BILIRUBIN TOTAL S/P/B 0.8 0.2 - 1.2 MG/DL 03/14/2025 1:28 PM [facility] TOTAL PROTEIN S/P/B 7.7 6.4 - 8.2 G/DL 03/14/2025 1:28 PM [facility] ALBUMIN S/P/B 4.2 3.4 - 5.0 G/DL 03/14/2025 1:28 PM [facility] AST 18 15 - 37 U/L 03/14/2025 1:28 PM [facility] ALT 24 14 - 55 U/L 03/14/2025 1:28 PM [facility] ALKALINE PHOSPHATASE S/P/B 42(L) 50 - 136 U/L 03/14/2025 1:28 PM [facility] ANION GAP 9.3 5 - 15 MMOL/L 03/14/2025 1:28 PM [facility] BUN CREATININE RATIO 17.3 6 - 26 03/14/2025 1:28 PM [facility] A/G RATIO 1.2 1.0 - 2.0 RATIO 03/14/2025 1:28 PM [facility] GFR ESTIMATE 60(L) >90 ML/MIN/1.7 3 M2 03/14/2025 1:28 PM [facility] Comment: NOTE: eGFR is not calculated for patients <18 years of age. This is an estimated GFR calculation using the new CKD EPI creatinine equation without race and so does not require a correction factor for race. This estimated GFR should not be used for calculating drug doses. 03/14/2025 12:5 3 PM CDT Sylvia Zuniga TECHNICAL MAINTENANCE TECHNICIAN LABORATORY Final Result [facility] [address] [place] [phone], * (ABNORMAL) CBC W/DIFF AUTOMATED (03/14/2025 12:53 PM CDT) WBC 7.09 4.4 - 11.0 x10'3/uL 03/14/2025 1:03 PM CDT [facility] RBC 3.95(L) 4.50 - 5.10 x10'6/uL 03/14/2025 1:03 PM CDT [facility] HGB 12.7 12.3 - 15.3 G/DL 03/14/2025 1:03 PM CDT [facility] HCT 38.7 35.9 - 44.6 % 03/14/2025 1:03 PM CDT [facility] MCV 98.0(H) 80.0 - 96.0 FL 03/14/2025 1:03 PM CDT [facility] MCH 32.2(H) 25.3 - 30.9 PG 03/14/2025 1:03 PM CDT [facility] MCHC 32.8 31.0 - 34.1 G/DL 03/14/2025 1:03 PM CDT [facility] RDW 12.8 12.4 - 15.1 % 03/14/2025 1:03 PM CDT [facility] PLT 174 151 - 353 x10'3/uL 03/14/2025 1:03 PM CDT [facility] MPV 10.2 9.6 - 12.0 FL 03/14/2025 1:03 PM CDT [facility] RBC MORPHOLOGY NORMAL 03/14/2025 1:03 PM CDT [facility] PLT MORPH. NORMAL 03/14/2025 1:03 PM CDT [facility] WBC MORPHOLOGY NORMAL 03/14/2025 1:03 PM CDT [facility] LYMPHOCYTES % 23.7 15.8 - 45.0 % 03/14/2025 1:03 PM CDT [facility] NEUTROPHILS % 65.5 42.1 - 71.9 % 03/14/2025 1:03 PM CDT [facility] MONOCYTES % 6.2 5.7 - 12.5 % 03/14/2025 1:03 PM CDT [facility] EOSINOPHILS 3.5 0.0 - 5.6 % 03/14/2025 1:03 PM CDT [facility] BASOPHILS 1.0 0.0 - 1.3 % 03/14/2025 1:03 PM CDT [facility] ABS. NEUTROPHILS 4.64 1.40 - 6.00 x10'3/uL 03/14/2025 1:03 PM CDT [facility] IMMATURE GRANS % 0.1 0.0 - 0.5 % 03/14/2025 1:03 PM CDT [facility] ABS. LYMPHOCYTES 1.68 0.80 - 4.70 x10'3/uL 03/14/2025 1:03 PM CDT [facility] 03/14/2025 12:5 3 PM CDT us Sylvia [facility] Final Result [facility] [address] [place] [address], documented in this encounter Visit Diagnoses Diagnosis Diabetes mellitus (CMS/HCC [facility]/HCC)- Primary Type II or unspecified type diabetes mellitus without mention of complication, not stated as uncontrolled Vitamin D deficiency Unspecified vitamin D deficiency Hyperlipemia Other and unspecified hyperlipidemia Essential hypertension, malignant documented in this encounter Additional Health Concerns Infection Onset Date Last Indicated Resolved Time 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
--- OUTSIDE RECORDS SUMMARY | 2025-03-16 01:04 | XMS_ITS | Encounter Summary ---
Author Organization [facility] Address [address] [facility] [address] [place] [address] Care Team Providers Care Breaker Table Worker Name Role Phone Tae Sharma MD Primary Care Provider [phone] Becca Ngo MD Primary Care Provider Amado Wray MD Primary Care Provider Encounter Details Date Type Department Care Team ([facility] Contact Info) Description 10/01/2016 Orders Only [facility] ProviderSid MD [address] [place] [address] Social History Tobacco Use Types Packs/Day Years Used Date Smoking Tobacco: Never Alcohol Use Standard Drinks/Week Comments No 0 (1 standard drink = 0.6 oz pur e alcohol) Comments Unknown Sex and Gender Information Value Date Recorded Sex Assigned at Not on file Legal Sex Female 3:14 AM MARRIAGE AND FAMILY TEACHER Gender Identity Not on file Sexual Orientation Not on file documented as of this encounter Plan of Treatment Not on file documented as of this encounter Procedures Procedure Name Priority Date/Time Associated Diagnosis Comments CARDIOLOGY REPORT 10/01/2016 documented in this encounter Results * CARDIOLOGY REPORT (10/01/2016) Anatomical Region Laterality Modality Other Narrative 10/01/2016 Ordered by an unspecified provider. Historical Provider [facility] Final Result documented in this encounter Visit Diagnoses Not on filedocumented in this encounter Care Teams Breaker Table Worker Relationship Specialty Start Date End Date Tae Sharma MD PCP - General 12/21/13 11/25/18 Becca Ngo MD PCP - General Family Medicine 11/26/18 05/14/20 Amado Wray MD PCP - General Family Practice 03/08/22 documented as of this encounter
--- OUTSIDE RECORDS SUMMARY | 2025-03-16 01:04 | XMS_ITS | Encounter Summary ---
Author Organization [facility] Address [address] [place] [address] Care Team Providers Care Engraving Operator Name Role Phone Amado Wray MD Primary Care Provider Encounter Details Date Type Department Care Team ([facility] st Contact Info) Description 12/28/2024 Orders Only [facility] [address] [place] [address] Scanning, Provider Social History Tobacco Use Types [...] on file Legal Sex Female 3:14 AM HOLLOW WARE MAKER Gender Identity Not on file Sexual Orientation Not on file documented as of this encounter Plan of Treatment Not on file documented as of this encounter Procedures Procedure Name Priority Date/Time Associated Diagnosis Comments SCAN - LABS 12/28/2024 documented in this encounter Results * SCAN - LABS (12/28/2024) us Provider Scanning Final Result documented in this encounter Visit Diagnoses Not on filedocumented in this encounter Care Teams Engraving Operator Relationship Specialty Start Date End Date Amado Wray MD PCP - General Family Practice 03/08/22 documented as of this encounter
--- OUTSIDE RECORDS SUMMARY | 2025-03-16 01:04 | XMS_ITS | Encounter Summary ---
Author Organization [facility] Healthcare Address [address] [place] [address] Care Team Providers Care Solar Designer/Installer Name Role Phone Amado Wray MD Primary Care Provider Encounter Details Date Type Department Care Team (Latest Contact Info) Description 03/03/2025 Results Follow-Up [facility] Cardiology [address] [place] [address] [address], [place] [address] [place] [address] [place] [address] [address], [address] [place], [place] [id number] Transthoracic Echo (TTE) Complete W Doppler/CF Social History Tobacco Use Types Packs/Day Years [...] on file Legal Sex Female 3:14 AM HR ADMINISTRATOR Gender Identity Not on file Sexual Orientation Not on file documented as of this encounter Plan of Treatment Not on file documented as of this encounter Visit Diagnoses Not on filedocumented in this encounter Care Teams Solar Designer/Installer Relationship Specialty Start Date End Date Amado Wray MD PCP - General Family Practice 03/08/22 documented as of this encounter
--- OUTSIDE RECORDS SUMMARY | 2025-03-16 01:04 | XMS_ITS | Referral Summary ---
Author Organization [facility] [place] [address] [place] [phone] Care Team Providers Care Shaft Sinker Name Role Phone Amado Wray MD Primary Care Provider Encounters Date Type Department Care Team Description 03/09/2025 Anticoagulation Visit [facility] [address] [place] [address] [address] [place] [phone] Merry Carmichael RN History of mitral valve replacement with mechanical valve (Primary Dx); PAF (paroxysmal atrial fibrillation) (CMS/HCC) (HCC) 03/09/2025 Telephone [place] [address] [place] [phone] Suhail Haro MD 03/03/2025 Results Follow-Up [facility] [address] [place] [address] [place] [phone] Suhail Haro MD Transthoracic Echo (TTE) Complete W Doppler/CF 03/02/2025 1:00 PM CDT Ancillary Procedure [facility] [address] [place] [address] [address] [place] [phone] S/P TAVR (transcatheter aortic valve replacement); History of mitral valve replacement with mechanical valve 03/01/2025 Anticoagulation Visit [address] [place] [phone] Merry Carmichael RN History of mitral valve replacement with mechanical valve (Primary Dx); PAF (paroxysmal atrial fibrillation) (CMS/HCC) (HCC) 02/22/2025 Anticoagulation Visit [facility] at [address] [place] [address] Santa Addison RN History of mitral valve replacement with mechanical valve (Primary Dx); PAF (paroxysmal atrial fibrillation) (CMS/HCC) (HCC) 02/22/2025 Telephone [facility] [address] [place] [address] [address] [place] [phone] Suhail Haro MD 02/15/2025 Anticoagulation Visit [facility] [address] [place] [address] [address] [place] [phone] Santa Addison RN History of mitral valve replacement with mechanical valve (Primary Dx); PAF (paroxysmal atrial fibrillation) (CMS/HCC) ([facility]) 02/15/2025 Telephone [facility] [address] [place] [address] [place] [phone] Suhail Haro MD 02/10/2025 Anticoagulation Visit [facility] [address] [place] [address] [address] [place] [phone] Naresh Rossi RN History of mitral valve replacement with mechanical valve (Primary Dx); PAF (paroxysmal atrial fibrillation) (CMS/HCC) (HCC) 02/08/2025 Anticoagulation Visit [facility] [address] [place] [address] [place] [phone] Lenora Anderson RN History of mitral valve replacement with mechanical valve (Primary Dx); PAF (paroxysmal atrial fibrillation) (CMS/[facility]) ([facility]) 02/08/2025 Telephone [facility] [address] [place] [address] [address] [place] [phone] Suhail Haro MD 02/01/2025 Anticoagulation Visit [facility] [address] [place] [address] [place] [phone] Cinthia Philippe RN History of mitral valve replacement with mechanical valve (Primary Dx); PAF (paroxysmal atrial fibrillation) (CMS/HCC) ([facility]) 02/01/2025 Telephone [facility] [address] [place] [address] [address] [place] [phone] Suhail Haro MD 01/25/[address] [facility] Health Information Management [address] [place] [phone] Scanning, Provider 01/25/2025 Anticoagulation Visit [address] [place] [phone] Santa Addison RN History of mitral valve replacement with mechanical valve (Primary Dx); PAF (paroxysmal atrial fibrillation) ([facility]) ([facility]) 01/25/2025 Telephone [place] [address] [place] [phone] Suhail Haro MD 01/18/[address] [facility] Health Information Management [address] [place] [phone] Scanning, Provider 01/18/2025 Anticoagulation Visit [facility] [place] [address] [place] [phone] Santa Addison RN History of mitral valve replacement with mechanical valve (Primary Dx); PAF (paroxysmal atrial fibrillation) ([facility]) ([facility]) 01/18/2025 Telephone [facility] [address] [place] [address] [place] [phone] Suhail Haro MD 01/11/2025 Anticoagulation Visit [facility] [address] [place] [address] [address] [place] [phone] Santa Addison RN History of mitral valve replacement with mechanical valve (Primary Dx); PAF (paroxysmal atrial fibrillation) ([facility]) ([facility]) 01/11/2025 Telephone [facility] [address] [place] [address] [address] [place] [phone] Suhail Haro MD 01/06/2025 Telephone [facility] [address] [place] [address] [address] [place] [phone] Suhail Haro MD 01/04/2025 Anticoagulation Visit [facility] [address] [place] [address] [place] [phone] Santa Addison RN History of mitral valve replacement with mechanical valve (Primary Dx); PAF (paroxysmal atrial fibrillation) (CMS/HCC) (HCC) 01/04/2025 Telephone [place] [address] [place] [phone] Suhail Haro MD 12/30/2024 Telephone [place] [address] [place] [phone] Suhail Haro MD 12/29/2024 1:45 PM CDT Office Visit [facility] [place] [address] [place] [phone] Suhail Haro MD S/P TAVR (transcatheter aortic valve replacement) (Primary Dx); History of mitral valve replacement with mechanical valve; PAF (paroxysmal atrial fibrillation) (CMS/HCC) (HCC); Chronic anticoagulation; LBBB (left bundle branch block); Lipid screening 12/28/[address] [facility] Health Information Management [address] [place] [phone] Scanning, Provider 12/28/2024 Anticoagulation Visit [facility] [place] [address] [place] [phone] Santa Addison RN History of mitral valve replacement with mechanical valve (Primary Dx); PAF (paroxysmal atrial fibrillation) (CMS/HCC) (HCC) 12/28/2024 Telephone [place] [address] [place] [phone] Suhail Haro MD 12/21/2024 Anticoagulation Visit [facility] [address] [place] [address] [place] [phone] Cinthia Philippe RN History of mitral valve replacement with mechanical valve (Primary Dx); PAF (paroxysmal atrial fibrillation) (CMS/HCC) (HCC) 12/21/2024 Anticoagulation Visit [facility] [address] [place] [phone] Santa Addison RN History of mitral valve replacement with mechanical valve (Primary Dx); PAF (paroxysmal atrial fibrillation) (CMS/HCC) (HCC) 12/21/2024 Telephone [facility] [address] [place] [phone] Suhail Haro MD from Last 3 Months Allergies Active Allergy Reactions Criticality Noted Date Comments Codeine Diarrhea,Nausea & Vomiting Low Ibuprofen Hives Medium Ferrous Sulfate Vomiting Low 08/06/2024 Medications diphenhydrAMIN E-acetaminophe n (ACETAMINOPHEN PM) 25-500 mg tablet take 1 Tablet by oral route every day at bedtime 0 0 4 Active warfarin (COUMADIN) 4 mg tablet take 1 tablet by oral route every day or as directed 45 0 7 Active Additional Information Patient taking differently:4 mgoral, Taking 4.5 on Sat, Reported on 12/29/2024 atorvastatin (LIPITOR) 10 mg tablet Take 1 tablet (10 mg total) by mouth every morning 8 Active gabapentin (NEURONTIN) 100 mg capsule Take 2 capsules (200 mg total) by mouth 2 (two) times a day FOUR TABLETS DAILY Active alendronate (FOSAMAX) 70 mg tablet Take 1 tablet (70 mg total) by mouth once a week On Friday 9 Active famotidine (PEPCID) 20 mg tablet Take 1 tablet (20 mg total) by mouth 2 (two) times a day as needed Active acetaminophen (TYLENOL) 325 mg tablet Take 2 tablets (650 mg total) by mouth every 6 (six) hours as needed for pain Active UNABLE TO FIND OTC- Restful Legs PM, orally, daily PRN Active cetirizine HCl (ALLERGY RELIEF, CETIRIZINE, ORAL) Take 1 tablet by mouth daily as needed Active glycerin (SUPPOSITORY ADULT RECT) Insert 1 suppository into the rectum daily as needed Active Jardiance 10 mg tablet Take 1 tablet (10 mg total) by mouth every morning 4 Active folic/mvi ther-min/lycop /lut (SRJCJR-PEX-ZI -LYCOPENE-LUTE IN ORAL) Take by mouth Active polyethylene glycol (MIRALAX) 17 gram/dose bulk powder Take 17 g by mouth daily as needed Active enoxaparin (LOVENOX) 80 mg/0.8 mL syringe Inject 0.7 ml subcutaneously twice a day as instructed. 9.8 mL 1 4 Active lisinopriL (PRINIVIL,ZEST RIL) 20 mg tablet Take 1 tablet by mouth once daily 90 tablet 2 5 Active warfarin (COUMADIN) 3 mg tablet TAKE 1 TABLET BY MOUTH ON MONDAYS, TAKE 1.5 TABLETS ALL OTHER DAYS 180 tablet 5 Active sotaloL (BETAPACE) 80 mg tablet Take 1 tablet by mouth twice daily 180 tablet 3 5 Active Active Problems Problem Noted Date Diagnosed Date S/P TAVR (transcatheter aortic valve replacement ) 08/19/2024 QT prolongation 05/28/2021 PAF (paroxysmal atrial fibrillation) ([facility]) 0 10/22/2018 Encounter for monitoring sotalol therapy 018 Mixed diabetic hyperlipidemi a associated with type 2 diabetes mellitus ([facility]) 10/01/2016 Overview (12/20/2016): DM type 2 with diabetic dyslipidemia Aortic valve stenosis with insufficiency 017 Overview (12/20/2016): Nonrheumatic aortic insufficiency with aortic stenosis Chronic anticoagulation 10/01/2016 Overview (12/20/2016): Chronic anticoagulation History of mitral valve replacement with mechani ryan valve 10/01/2016 Overview (12/20/2016): S/P mitral valve replacement with metallic valve Hypertension associated with diabetes 10/01/2016 Overview (12/20/2016): HTN (hypertension), benign Atrial fibrillation 01/03/2015 Overview (12/20/2016): Atrial fibrillation Resolved Problems Problem Noted Date Diagnosed Date Resolved Date History of prosthetic heart valve 01/03/2015 08/16/2022 Overview (12/20/2016): H/O: artificial heart valve Essential hypertension 01/03/201503/20 Overview (12/20/2016): Essential hypertension Social History Tobacco Use Types Packs/Day Years Used Date Smoking Tobacco: Never Smokeless Tobacco: Never Tobacco Cessation:Counseling Given: Not Answered Alcohol Use Standard Drinks/Week Comments No 0 [...] on file Legal Sex Female 3:14 AM [employer]ICK TE[employer] Gender Identity Not on file Sexual Orientation Not on file Last Filed Vital Signs Vital Sign Reading Time Taken Comments Blood Pressure 108/78 12/29/2024 2:01 PM CDT Pulse 68 12/29/2024 2:01 PM CDT Temperature 36.3 C (97.3 F) 08/20/2024 11:51 AM BRICK TESTER Respiratory Rate 18 08/20/2024 11:51 AM BRICK TE[employer] Oxygen Saturation 97% 12/29/2024 2:01 PM CDT Inhaled Oxygen Concentration - - Weight 71.2 kg (157 lb) 12/29/2024 2:01 PM CDT Height 162.6 cm (5' 4) 12/29/2024 2:01 PM CDT Body Mass Index 26.95 12/29/2024 2:01 PM CDT Plan of Treatment Not on file Medical Devices Implanted Type Area Supervisor Floor Assembly Device Identifier Shelf Expiration Date Model / Serial / Lot [employer] System Closure Repair Femoral Artery Suture Mediated Perclose Prostyle 48031-11 - [id number] Implanted:Qty: 1 on 08/19/2024 by Suhail Haro MD at [facility] [employer] 05/15/2026 [id number] / / [id number] [employer] System Closure Repair Femoral Artery Suture Mediated Perclose Prostyle 87352-07 - [id number] Implanted:Qty: 1 on 08/19/2024 by Suhail Haro MD at [facility] [employer] 05/15/2026 [id number] / / [id number] [employer] Valve Aortic Trnscath Suzanna 3 Ultra Resilia 26mm [id number] - [id number] - [id number] Implanted:Qty: 1 on 08/19/2024 by Suhail Haro MD at [facility] [employer] 12/10/2026 [id number] / [id number] / [employer] Device Closure Vascade Od5 Fr Femoral Artery [id number] - [id number] Implanted:Qty: 1 on 08/19/2024 by Suhail Haro MD at [facility] [employer] 04/12/2026 [id number] / / [id number] Procedures Procedure Name Priority Date/Time Associated Diagnosis Comments PROTIME-INR Routine 03/09/2025 TRANSTHORACIC ECHO (TTE) COMPLETE W DOPPLER/CF WO CONTRAST Routine 03/02/2025 2:03 PM CDT S/P TAVR (transcatheter aortic valve replacement) History of mitral valve replacement with mechanical valve PROTIME-INR Routine 03/01/2025 PROTIME-INR Routine 02/22/2025 PROTIME-INR Routine 02/15/2025 PROTIME-INR Routine 02/08/2025 PROTIME-INR Routine 02/01/2025 SCAN - LABS 01/25/2025 PROTIME-INR Routine 01/25/2025 SCAN - LABS 01/18/2025 PROTIME-INR Routine 01/18/2025 PROTIME-INR Routine 01/11/2025 PROTIME-INR Routine 01/04/2025 POCT LIPID PANEL Routine 12/29/2024 1:55 PM CDT Lipid screening SCAN - LABS 12/28/2024 PROTIME-INR Routine 12/28/2024 PROTIME-INR Routine 12/21/2024 PROTIME-INR Routine 12/21/2024 EGFR Routine 08/20/2024 2:49 AM [employer] TE[employer] HEMOGLOBIN A1C Routine 08/06/2024 9:51 AM [employer] TE[employer] Pre-operative exam Type 2 diabetes mellitus with hyperlipidemia (HCC) from Last 3 Months or Most Recently Relevant to Health Maintenance Results * (ABNORMAL) Protime-INR (03/09/2025) INR 3.10(A) 0.90 - 1.10 EXTERNAL LAB Blood us Historical Provider MD LAB BLOOD ORDERABLES Nely l Result EXTERNAL LAB * TRANSTHORACIC ECHO (TTE) COMPLETE W DOPPLER/CF WO CONTRAST (03/02/2025 2:03 PM CDT) Estimated EF 55 % CONS SCIMAGE EF Mod BP 63 % CONS SCIMAGE Anatomical Region Laterality Modality Ultrasound 03/02/2025 12:2 3 PM CDT Narrative 03/02/2025 10:31 PM CDT [facility] [address], [place] [address] [address], [place] [address] P:[phone] P:[phone] Echocardiographic Report Patient Name: LILA ELI A : 1950 Study Date: 03/02/2025 12:23:33 PM Gender: F Tech: PRAMOD Location: [facility] Provider: SUHAIL HARO Height(Cm): 163 BSA: 1.8 Weight(Kg): 71.2 Heart Rate: 68 BP: 108 / 78 Quality: Good Order Provider: SUHAIL HARO PROCEDURES: Echocardiographic Report: Transthoracic echocardiogram with complete 2D, M-Mode, and color Doppler examination. With Strain Analysis. INDICATIONS: Z95.2 Presence of prosthetic heart valve and Z95.2 Presence of prosthetic heart valve. MEASUREMENTS: 2D/MM Value Range Doppler Value Range EF Mod BP 63 % [ 54 - 74 ] MEG Vmax 1.56 cm2 [ 2.00 - 4.00 ] Estimated EF 55 % AV Mean PG 8 mmHg LVIDd 2D 5.06 cm [ 3.80 - 5.20 ] AV Peak Jairo 1.94 m/s [ 1.00 - 1.70 ] LVIDs 2D 3.39 cm [ 2.20 - 3.50 ] AV Peak PG 15 mmHg LVPWd 2D 1.19 cm [ 0.60 - 0.90 ] AV VTI 31.71 cm IVSd 2D 1.15 cm [ 0.60 - 0.90 ] LVOT Diam 2.03 cm [ 1.70 - 2.10 ] LA Volume Index 49 cc/m2 [ 16 - 34 ] LVOT Peak Jairo 0.91 m/s [ 0.70 - 1.10 ] LVOT VTI 17.30 cm MV E Peak Jairo 1.44 m/s [ 0.60 - 1.30 ] MV A Peak Jairo 1.22 m/s [ 1.00 - 1.20 ] MV Mean PG 3 mmHg [ 0 - 5 ] MV Decel Time 183 msec [ 104 - 258 ] PV Peak Jairo 0.82 m/s [ 0.40 - 0.80 ] TR Peak Jairo 2.47 m/s [ 1.00 - 2.80 ] TR Peak PG 24 mmHg Lateral E` 0.06 m/s [ 0.10 - 0.15 ] E` 0.04 m/s E/E` 24 2D/MM Value Range Doppler Value Range - FINDINGS: Interpretation Site: Exam was interpreted at home. Left Ventricle: Moderate concentric left ventricular hypertrophy. Left ventricle cavity is upper limits of normal in size. Left ventricular systolic function at the lower limit of normal. Diastolic dysfunction is present. Ejection Fraction is visually estimated to be 55 %. Global Longitudinal Strain is -12 %. Right Ventricle: Normal right ventricular size. Normal right ventricular systolic function. Left Atrium: There is moderate enlargement of left atrium. Right Atrium: The right atrium is normal in size. Atrial Septum: Normal atrial septum. Mitral Valve: s/p Saint [place]l mechanical MVR. Trivial regurgitation of the mitral valve. Mean gradient of 3.00 mmHg. Normal gradients for valve type and size. Aortic Valve: s/p TAVR using 26 mm [place] Suzanna 3 Ultra Resilia pericardial tissue valve. Peak Velocity of 1.90 m/s. Gradients normal for valve type and size. Tricuspid Valve: Normal appearance of the tricuspid valve. Estimated peak RVSP is 32 mmHg. Trivial regurgitation in the tricuspid valve. Pulmonic Valve: Normal appearance of the pulmonic valve. Trivial regurgitation in the pulmonic valve. Pericardium: Normal pericardium with no significant pericardial effusion. Aorta: Ascending Aorta 3.7 cm. IVC: Normal size and normal respiratory collapse consistent with normal right atrial pressure (<5 mmHg). CONCLUSIONS: Moderate concentric left ventricular hypertrophy. Left ventricle cavity is upper limits of normal in size. Left ventricular systolic function at the lower limit of normal. Diastolic dysfunction is present. Ejection Fraction about 55 %. Global Longitudinal Strain abnormal at -12 %. Normal right ventricular size and systolic function. Moderate enlargement of left atrium. s/p [place] Jl mechanical MVR. Trivial regurgitation of the mitral valve. Mean gradient 3.00 mmHg. Normal gradients for valve type and size. s/p TAVR using 26 mm [place] Suzanna 3 Ultra Resilia pericardial tissue valve. Peak Velocity 1.90 m/s. Mean gradient 8 mmHg. DVI 0.50. Gradients normal for valve type and size. Estimated peak RVSP is 32 mmHg. Trivial regurgitation in the tricuspid valve. Electronically Signed By: Suhail Haro MD, [facility] 03/02/2025 10:30:32 PM CDT Procedure Note Suhail Haro MD - 03/02/2025 [facility] [address] [facility] [address], [place] [address] [address] [facility] [address], [place] [address] P:[phone] P:[phone] Echocardiographic Report Patient Name: LILA ELI A : 1950 Study Date: 03/02/2025 12:23:33 PM Gender: F Tech: [facility] Location: [facility] Provider: SUHAIL HARO Height(Cm): 163 BSA: 1.8 Weight(Kg): 71.2 Heart Rate: 68 BP: 108 / 78 Quality: Good Order Provider: SUHAIL HARO PROCEDURES: Echocardiographic Report: Transthoracic echocardiogram with complete 2D, M-Mode, and color Dopplerexamination. With Strain Analysis. INDICATIONS: Z95.2 Presence of prosthetic heart valve and Z95.2 Presence of prostheticheart valve. MEASUREMENTS: 2D/MM Value Range Doppler ValueRange EF Mod BP 63 % [ 54 - 74 ] MEG Vmax 1.56cm2 [ 2.00 - 4.00 ] Estimated EF 55 % AV Mean PG 8mmHg LVIDd 2D 5.06 cm [ 3.80 - 5.20 ] AV Peak Jairo 1.94m/s [ 1.00 - 1.70 ] LVIDs 2D 3.39 cm [ 2.20 - 3.50 ] AV Peak PG 15mmHg LVPWd 2D 1.19 cm [ 0.60 - 0.90 ] AV VTI 31.71cm IVSd 2D 1.15 cm [ 0.60 - 0.90 ] LVOT Diam 2.03 cm[ 1.70 - 2.10 ] LA Volume Index 49 cc/m2 [ 16 - 34 ] LVOT Peak Jairo 0.91m/s [ 0.70 - 1.10 ] LVOT VTI 17.30 cm MV E Peak Jairo 1.44 m/s [ 0.60 - 1.30 ] MV A Peak Jairo 1.22 m/s [ 1.00 - 1.20 ] MV Mean PG 3 mmHg [ 0 - 5 ] MV Decel Time 183 msec [ 104 - 258 ] PV Peak Jairo 0.82 m/s [ 0.40 - 0.80 ] TR Peak Jairo 2.47 m/s [ 1.00 - 2.80 ] TR Peak PG 24 mmHg Lateral E` 0.06 m/s [ 0.10 - 0.15 ] E` 0.04 m/s E/E` 24 2D/MM Value Range Doppler ValueRange - FINDINGS: Interpretation Site: Exam was interpreted at home. Left Ventricle: Moderate concentric left ventricular hypertrophy. Left ventricle cavity isupper limits of normal in size. Left ventricular systolic function at the lower limitof normal. Diastolic dysfunction is present. Ejection Fraction is visually estimatedto be 55 %. Global Longitudinal Strain is -12 %. Right Ventricle: Normal right ventricular size. Normal right ventricular systolicfunction. Left Atrium: There is moderate enlargement of left atrium. Right Atrium: The right atrium is normal in size. Atrial Septum: Normal atrial septum. Mitral Valve: s/p Saint Jl mechanical MVR. Trivial regurgitation of the mitral valve. Mean gradient of 3.00 mmHg.Normal gradients for valve type and size. Aortic Valve: s/p TAVR using 26 mm [place] Suzanna 3 Ultra Resilia pericardial tissuevalve. Peak Velocity of 1.90 m/s. Gradients normal for valve type and size. Tricuspid Valve: Normal appearance of the tricuspid valve. Estimated peak RVSP is 32 mmHg.Trivial regurgitation in the tricuspid valve. Pulmonic Valve: Normal appearance of the pulmonic valve. Trivial regurgitation in thepulmonic valve. Pericardium: Normal pericardium with no significant pericardial effusion. Aorta: Ascending Aorta 3.7 cm. IVC: Normal size and normal respiratory collapse consistent with normal rightatrial pressure (<5 mmHg). CONCLUSIONS: Moderate concentric left ventricular hypertrophy. Left ventricle cavity isupper limits of normal in size. Left ventricular systolic function at the lower limitof normal. Diastolic dysfunction is present. Ejection Fraction about 55 %. GlobalLongitudinal Strain abnormal at -12 %. Normal right ventricular size and systolic function. Moderate enlargement of left atrium. s/p Saint Jl mechanical MVR. Trivial regurgitation of the mitral valve.Mean gradient 3.00 mmHg. Normal gradients for valve type and size. s/p TAVR using 26 mm [place] Suzanna 3 Ultra Resilia pericardial tissuevalve. Peak Velocity 1.90 m/s. Mean gradient 8 mmHg. DVI 0.50. Gradients normal forvalve type and size. Estimated peak RVSP is 32 mmHg. Trivial regurgitation in the tricuspidvalve. Electronically Signed By: Suhail Haro MD, [facility] 03/02/2025 10:30:32 PM CDT Result [facility] Suhail Haro MD CV ECHO PROCEDURES Final Result * (ABNORMAL) Protime-INR (03/01/2025) Pathologist [facility] INR 3.70(A) 0.90 - 1.10 EXTERNAL LAB Blood Result [facility] Historical Provider LAB BLOOD ORDERABLES Nely l Result EXTERNAL LAB * (ABNORMAL) Protime-INR (02/22/2025) INR 3.80(A) 0.90 - 1.10 EXTERNAL LAB Blood Result [facility] Historical Provider LAB BLOOD ORDERABLES Nely l Result EXTERNAL LAB * (ABNORMAL) Protime-INR (02/15/2025) INR 2.90(A) 0.90 - 1.10 EXTERNAL LAB Blood Result [facility] Provider MD LAB BLOOD ORDERABLES Nely l Result EXTERNAL LAB * (ABNORMAL) Protime-INR (02/08/2025) INR 2.20(A) 0.90 - 1.10 EXTERNAL LAB Blood Result [facility] Provider MD LAB BLOOD ORDERABLES Nely l Result EXTERNAL LAB * (ABNORMAL) Protime-INR (02/01/2025) INR 3.30(A) 0.90 - 1.10 EXTERNAL LAB Blood Result [facility] Provider MD LAB BLOOD ORDERABLES Nely l Result Performing Organization Address City/[facility]/ZIP Co de Phone Number EXTERNAL LAB * SCAN - LABS (01/25/2025) Result [facility] Provider Scanning Final Result * (ABNORMAL) Protime-INR (01/25/2025) INR 2.70(A) 0.90 - 1.10 EXTERNAL LAB Blood Result [facility] Provider MD LAB BLOOD ORDERABLES Nely l Result Performing Organization Address City/[facility]/ZIP Co de Phone Number EXTERNAL LAB * SCAN - LABS (01/18/2025) Result [facility] Provider Scanning Edited Result - Final * (ABNORMAL) Protime-INR (01/18/2025) INR 2.90(A) 0.90 - 1.10 EXTERNAL LAB Blood Result [facility] Provider MD LAB BLOOD ORDERABLES Nely l Result Performing Organization Address City/[facility]/ZIP Co de Phone Number EXTERNAL LAB * (ABNORMAL) Protime-INR (01/11/2025) INR 3.70(A) 0.90 - 1.10 EXTERNAL LAB Blood Result [facility] Historical Provider MD LAB BLOOD ORDERABLES Nely l Result EXTERNAL LAB * (ABNORMAL) Protime-INR (01/04/2025) INR 3.50(A) 0.90 - 1.10 EXTERNAL LAB Blood Result [facility] Provider MD LAB BLOOD ORDERABLES Nely l Result Performing Organization Address [facility]/ZIP Co de Phone Number EXTERNAL LAB * POCT lipid panel (12/29/2024 1:55 PM CDT) Pathologist [facility] Cholesterol, POC 177 mg/dL HDL, POC 46 mg/dL Triglycerides, POC 220 mg/dL LDL Cholesterol POC 87 mg/dL Chol/HDL Ratio, POC 1.9 Non-HDL Cholesterol, POC 131 mg/dL Cholesterol Total, POC 177 mg/dL Capillary blood 12/29/2024 1 :55 PM CDT Result [facility] Suhail Haro MD POINT OF CARE TEST ORDERABLES Fi nal Result * SCAN - LABS (12/28/2024) Result [facility] Provider Scanning Final Result * (ABNORMAL) Protime-INR (12/28/2024) INR 3.30(A) 0.90 - 1.10 EXTERNAL LAB Blood Result [facility] Historical Provider LAB BLOOD ORDERABLES Nely l Result Performing Organization Address City/[facility]/ZIP Co de Phone Number EXTERNAL LAB * (ABNORMAL) Protime-INR (12/21/2024) INR 2.50(A) 0.90 - 1.10 EXTERNAL LAB Blood Historical Provider LAB BLOOD ORDERABLES Nely l Result EXTERNAL LAB * (ABNORMAL) Protime-INR (12/21/2024) Pathologist [facility] INR 2.50(A) 0.90 - 1.10 EXTERNAL LAB Blood Historical Provider MD LAB BLOOD ORDERABLES Nely l Result Performing Organization Address [facility] Co de Phone Number EXTERNAL LAB * eGFR (08/20/2024 2:49 AM BRICK TESTER) Pathologist [facility] eGFR 90 >=60 mL/min/1. 73 m2 Comment: Interpretive Data Reference Interval Normal >/= 90 mL/min/1.73m2 Mildly decreased* 60 - 89 mL/min/1.73m2 Mildly to moderately decreased 45 - 59 mL/min/1.73m2 Moderately to severely decreased 30 - 44 mL/min/1.73m2 Severely decreased 15 - 29 mL/min/1.73m2 Kidney Failure < 15 mL/min/1.73m2 *Relative to young adult level Estimated glomerular filtration rate is determined by the 2020 CKD-EPI equation recommended by the National Kidney Foundation (A Unifying Approach to GFR Estimation: Recommendations of the NKF-ASK Task Force on Reassessing the Inclusion of Race in Diagnosing Kidney Disease, JASN 2020). The CKD-EPI equation should not be used for patients with unstable renal function and has not been validated in children and those over 70. Current interpretive data was last reviewed 2021. Blood 08/20/2024 2:49 AM BRICK TESTER 08/20/2024 3:08 AM BRICK TESTER Result [facility] Suhail Haro MD LAB BLOOD ORDERABLES Final Resul t Performing Organization Address City/[facility]/ZIP Co de Phone Number NONI SCHAFER [id number] Department [place] [address] * (ABNORMAL) Hemoglobin A1c (08/06/2024 9:51 AM BRICK TESTER) Hgb A1C 7.2(H) 4.0 - 5.6 % Estimated Average Glucose 160 mg/dL NONI SCHAFER Comment: The ADA recommends reporting an estimated Average Glucose (eAG) with all Hemoglobin A1c results using the equation derived from a study of 507 normal and diabetic adults. Minority populations were underrepresented and children were not included. (Diabetes Care 31:3221-4959, 2008). The eAG is not equivalent to a fasting glucose. Blood 08/06/2024 9:51 AM BRICK TESTER 08/06/2024 9:58 AM BRICK TESTER us Suhail Haro MD LAB BLOOD ORDERABLES Final Resul t NONI SCHAFER [id number] Department [place] [address] from Last 3 Months or Most Recently Relevant to Health Maintenance Insurance [facility] MEDICARE ADVANTAGE IDOH [facility] MEDICARE ADVANTAGE IDPA [facility] MEDICARE ADVANTAGE [place] [address] Care Teams Shaft Sinker Relationship Specialty Start Date End Date Amado Wray MD PCP - General Family Practice 03/08/22
--- OUTSIDE RECORDS SUMMARY | 2025-03-16 01:04 | XMS_ITS | Clinical Summary ---
Author Organization [facility] [address] Address [address] [place] [address] Care Team Providers Care Rug Renovator Name Role Phone Amado Wray MD Primary Care Provider Allergies Active Allergy Reactions Criticality Noted Date [...] every morning 4 Active folic/mvi ther-min/lycop /lut (RLMENG-MJS-MF -LYCOPENE-LUTE IN ORAL) Take by mouth Active [...] QT prolongation 05/28/2021 PAF (paroxysmal atrial fibrillation) ([facility]) 0 10/22/2018 Encounter for monitoring sotalol therapy 018 Mixed diabetic hyperlipidemi a associated with type 2 diabetes mellitus ([facility]) 10/01/2016 Overview (12/20/2016): DM type 2 with [...] Essential hypertension 01/03/201503/20 Overview (12/20/2016): Essential hypertension Encounters Date Type Department Care Team Description 03/09/2025 Anticoagulation Visit [facility] Cardiology [address] [place] [address] [place] [phone] Merry Carmichael RN History of mitral valve replacement with mechanical valve (Primary Dx); PAF (paroxysmal atrial fibrillation) (CMS/HCC) (HCC) 03/09/2025 Telephone [facility] Cardiology [address] [place] [address] [place] [phone] Suhail Haro MD 03/03/2025 Results Follow-Up [facility] Cardiology [address] [place] [address] [place] [phone] Suhail Haro MD Transthoracic Echo (TTE) Complete W Doppler/CF 03/02/2025 1:00 PM CDT Ancillary Procedure [facility] [address] [place] [address] [place] [phone] S/P TAVR (transcatheter aortic valve replacement); History of mitral valve replacement with mechanical valve 03/01/2025 Anticoagulation Visit [facility]iology [address] [place] [address] [place] [phone] Merry Carmichael RN History of mitral valve replacement with mechanical valve (Primary Dx); PAF (paroxysmal atrial fibrillation) (CMS/HCC) (HCC) 02/22/2025 Anticoagulation Visit [facility] Cardiology at [address] [place] [phone] Santa Addison RN History of mitral valve replacement with mechanical valve (Primary Dx); PAF (paroxysmal atrial fibrillation) (CMS/HCC) (HCC) 02/22/2025 Telephone [facility]iology [address] [place] [address] [place] [phone] Suhail Haro MD 02/15/2025 Anticoagulation Visit [place] [address] [place] [phone] Santa Addison RN History of mitral valve replacement with mechanical valve (Primary Dx); PAF (paroxysmal atrial fibrillation) (CMS/HCC) (HCC) 02/15/2025 Telephone [place] [address] [place] [phone] Suhail Haro MD 02/10/2025 Anticoagulation Visit [place] [address] [place] [phone] Naresh Rossi RN History of mitral valve replacement with mechanical valve (Primary Dx); PAF (paroxysmal atrial fibrillation) (CMS/HCC) (HCC) 02/08/2025 Anticoagulation Visit [facility]iology [address] [place] [address] [place] [phone] Lenora Anderson RN History of mitral valve replacement with mechanical valve (Primary Dx); PAF (paroxysmal atrial fibrillation) (CMS/HCC) (HCC) 02/08/2025 Telephone [place] [address] [place] [phone] Suhail Haro MD 02/01/2025 Anticoagulation Visit [facility]iology [address] [place] [address] [place] [phone] iCnthia Philippe RN History of mitral valve replacement with mechanical valve (Primary Dx); PAF (paroxysmal atrial fibrillation) (CMS/HCC) (HCC) 02/01/2025 Telephone [facility]iology [address] [place] [address] [place] [phone] Suhail Haro MD 01/25/2025 Orders Only [facility] Health Information Management [address] [place] [phone] Scanning, Provider 01/25/2025 Anticoagulation Visit [facility] Cardiology [address] [place] [address] [address] [place] [phone] Santa Addison RN History of mitral valve replacement with mechanical valve (Primary Dx); PAF (paroxysmal atrial fibrillation) ([facility]) (HCC) 01/25/2025 Telephone [facility] [address] [place] [address] [address] [place] [phone] Suhail Haro MD 01/18/2025 Orders Only [facility] Health Information Management [address] [place] [phone] Scanning, Provider 01/18/2025 Anticoagulation Visit [facility] Cardiology [address] [place] [address] [address] [place] [phone] Santa Addison RN History of mitral valve replacement with mechanical valve (Primary Dx); PAF (paroxysmal atrial fibrillation) ([facility]) (HCC) 01/18/2025 Telephone [facility]iology [address] [place] [address] [address] [place] [phone] Suhail Haro MD 01/11/2025 Anticoagulation Visit [facility] Cardiology [address] [place] [address] [address] [place] [phone] Santa Addison RN History of mitral valve replacement with mechanical valve (Primary Dx); PAF (paroxysmal atrial fibrillation) ([facility]) (HCC) 01/11/2025 Telephone [facility]iology [address] [place] [address] [address] [place] [phone] Suhail Haro MD 01/06/2025 Telephone [facility]iology [address] [place] [address] [address] [place] [phone] Suhail Haro MD 01/04/2025 Anticoagulation Visit [facility]iology [address] [place] [address] [address] [place] [phone] Santa Addison RN History of mitral valve replacement with mechanical valve (Primary Dx); PAF (paroxysmal atrial fibrillation) (CMS/HCC) (HCC) 01/04/2025 Telephone [facility]iology [address] [place] [address] [place] [phone] Suhail Haro MD 12/30/2024 Telephone [facility]iology [address] [place] [address] [place] [phone] Suhail Haro MD 12/29/2024 1:45 PM CDT Office Visit [facility]iology [address] [place] [address] [place] [phone] Suhail Haro MD S/P TAVR (transcatheter aortic valve replacement) (Primary Dx); History of mitral valve replacement with mechanical valve; PAF (paroxysmal atrial fibrillation) (CMS/HCC) (HCC); Chronic anticoagulation; LBBB (left bundle branch block); Lipid screening 12/28/2024 Orders Only [facility] Health Information Management [address] [place] [phone] Scanning, Provider 12/28/2024 Anticoagulation Visit [facility] Cardiology [address] [place] [address] [place] [phone] Santa Addison RN History of mitral valve replacement with mechanical valve (Primary Dx); PAF (paroxysmal atrial fibrillation) (CMS/HCC) (HCC) 12/28/2024 Telephone [place] [address] [place] [phone] Suhail Haro MD 12/21/2024 Anticoagulation Visit [facility]iology [address] [place] [address] [place] [phone] Cinthia Philippe RN History of mitral valve replacement with mechanical valve (Primary Dx); PAF (paroxysmal atrial fibrillation) (CMS/HCC) (HCC) 12/21/2024 Anticoagulation Visit [facility] Cardiology [address] [place] [address] [place] [phone] Santa Addison RN History of mitral valve replacement with mechanical valve (Primary Dx); PAF (paroxysmal atrial fibrillation) (CMS/HCC) (HCC) 12/21/2024 Telephone [facility] Cardiology [address] [place] [phone] Suhail Haro MD from Last 3 Months Surgical History Surgery Date Site/Laterality Comments OTHER SURGICAL HISTORY [facility] MVR 06/17; katharina, hyst, skin graft MECHANICAL MITRAL VALVE REPLACEMENT CHOLECYSTECTOMY HYSTERECTOMY SKIN GRAFT ARM SURGERY Right Fx repair CARDIAC CATHETERIZATION 06/21/2024 CATARACT EXTRACTION Bilateral Medical History Medical History Date Comments Hx Other Medical DM II, obesity, afib, HTN, [facility] MVR Aortic stenosis Hyperlipidemia Hypertension Diabetes mellitus (HCC) Atrial fibrillation (HCC) Type 2 diabetes mellitus (HCC) Urinary tract infection Chronic anticoagulation GERD (gastroesophageal reflux disease) Cataract Family History Medical History Relation Name Comments Heart attack Brother 2 Myocardial Infa rction; Cause of : Myocardial Infarction Relation Name Status Comments Brother 1 (Age 62) Brother 2 Father Mother Social History Tobacco Use Types Packs/Day Years [...] on file Legal Sex Female 3:14 AM STEAM FINISHER Gender Identity Not on file Sexual Orientation Not on file Obstetrics History Last Filed Vital Signs Vital Sign Reading Time Taken Comments Blood Pressure 108/78 12/29/2024 2:01 PM CDT Pulse 68 12/29/2024 2:01 PM CDT Temperature 36.3 C (97.3 F) 08/20/2024 11:51 AM STEAM FINISHER Respiratory Rate 18 08/20/2024 11:51 AM STEAM FINISHER Oxygen Saturation 97% 12/29/2024 2:01 PM CDT Inhaled Oxygen Concentration - - Weight 71.2 kg (157 lb) 12/29/2024 2:01 PM CDT Height 162.6 cm (5' 4) 12/29/2024 2:01 PM CDT Body Mass Index 26.95 12/29/2024 2:01 PM CDT Plan of Treatment Health Maintenance Due Date Last Done Comments Albumin Creatinine Ratio, Urine 1950 Depression Screening 1950 Hepatitis C Screening 1950 Dilated Eye Exam 1950 Foot Exam 1950 DTaP/Tdap/Td Vaccine (1 - Tdap) 1959 Hepatitis B Screening 1966 Zoster Vaccine (1 of 2) 1998 Well Visit 65+ 2013 Pneumococcal vaccine 65+ (2 of 2 - PCV) 07/17/2019 07/17/2018, 11/03/2013 Hemoglobin A1C 02/03/2025 08/06/2024 Influenza Vaccine (Season Ended) 2025 07/17/2018, 09/19/2017, 07/31/2015, Additional history exists Fall Risk Assessment 08/20/2025 08/20/2024 eGFR 08/20/2025 08/20/2024, 01/2024, 08/06/2024, Additional history exists Lipid Panel 12/29/2025 12/29/2024, 10/16, 09/01/2023, Additional history exists Osteoporosis Screening-Bone Density Scan 09/23/2026 09/23/2024 Breast Cancer Screening-Mammogram Discontinued 024, 05/21/2024 Medical Devices Implanted Type Area Extracting Machine Operator Device Identifier Shelf Expiration Date Model / Serial / Lot [employer] System Closure Repair Femoral Artery Suture Mediated Perclose Prostyle 91361-06 - [id number] Implanted:Qty: 1 on 08/19/2024 by Suhail Haro MD at [facility] [employer] 05/15/2026 [id number] / / [id number] [employer] System Closure Repair Femoral Artery Suture Mediated Perclose Prostyle 31017-14 - [id number] Implanted:Qty: 1 on 08/19/2024 by Suhail Haro MD at [facility] [employer] 05/15/2026 [id number] / / [id number] [employer] Valve Aortic Trnscath Suzanna 3 Ultra Resilia 26mm [id number] - [id number] - [id number] Implanted:Qty: 1 on 08/19/2024 by Suhail Haro MD at [facility] [employer] 12/10/2026 [id number] / [id number] / [employer] Device Closure Vascade Od5 Fr Femoral Artery [id number] - [id number] Implanted:Qty: 1 on 08/19/2024 by Suhail Haro MD at [facility] [employer] 04/12/2026 [id number] / / [id number] Procedures Procedure Name Priority Date/Time Associated [...] Routine 12/21/2024 EGFR Routine 08/20/2024 2:49 AM STEAM FINISHER HEMOGLOBIN A1C Routine 08/06/2024 9:51 AM STEAM FINISHER Pre-operative exam Type 2 diabetes mellitus with [...] PM CDT Narrative 03/02/2025 10:31 PM CDT [facility] Cardiology [address], [place] [address] [address] [facility] [address], [place] [address] P:[phone] P:[phone] Echocardiographic Report Patient Name: LILA ELI A : 1950 Study Date: 03/02/2025 12:23:33 PM Gender: F Tech: PRAMOD Location: [facility] Provider: SUHAIL HARO Height(Cm): 163 BSA: 1.8 [...] valve. Electronically Signed By: Suhail Haro MD, [facility] 03/02/2025 10:30:32 PM CDT Procedure Note Suhail Haro MD - 03/02/2025 [facility] Cardiology [address], [place] [address] [address] [facility] [address], [place] [address] P:[phone] P:[phone] Echocardiographic Report Patient Name: LILA ELI A : 1950 Study Date: 03/02/2025 12:23:33 PM Gender: F Tech: [facility] Location: [facility] Provider: SUHAIL HARO Height(Cm): 163 BSA: 1.8 [...] tricuspidvalve. Electronically Signed By: Suhail Haro MD, [facility] 03/02/2025 10:30:[address] [facility] Suhail Haro MD CV ECHO PROCEDURES Final Result * (ABNORMAL) Protime-INR (03/01/2025) [facility] Signature INR 3.70(A) 0.90 - 1.10 EXTERNAL LAB Blood Result [facility] Provider LAB BLOOD ORDERABLES Nely l Result Performing Organization Address City/[facility]/ZIP Co de Phone Number EXTERNAL LAB * (ABNORMAL) Protime-INR (02/22/2025) [facility] INR 3.80(A) 0.90 - 1.10 EXTERNAL LAB Blood Result [facility] Provider LAB BLOOD ORDERABLES Nely l Result EXTERNAL LAB * (ABNORMAL) Protime-INR (02/15/2025) [facility] INR 2.90(A) 0.90 - 1.10 EXTERNAL LAB Blood Result [facility] Provider LAB BLOOD ORDERABLES Nely l Result EXTERNAL LAB * (ABNORMAL) Protime-INR (02/08/2025) INR 2.20(A) 0.90 - 1.10 EXTERNAL LAB Blood Result [facility] Provider MD LAB BLOOD ORDERABLES Nely l Result EXTERNAL LAB * (ABNORMAL) Protime-INR (02/01/2025) INR 3.30(A) 0.90 - 1.10 EXTERNAL LAB Blood Result [facility] Provider MD LAB BLOOD ORDERABLES Nely l Result Performing Organization Address City/[facility]/ZIP Co de Phone Number EXTERNAL LAB * SCAN - LABS (01/25/2025) Provider Scanning Final Result * (ABNORMAL) Protime-INR (01/25/2025) Pathologist [facility] INR 2.70(A) 0.90 - 1.10 EXTERNAL LAB Blood Result [facility] Provider MD LAB BLOOD ORDERABLES Nely l Result Performing Organization Address City/[facility]/ZIP Co de Phone Number EXTERNAL LAB * SCAN - LABS (01/18/2025) Result [facility] Provider Scanning Edited Result - Final * (ABNORMAL) Protime-INR (01/18/2025) INR 2.90(A) 0.90 - 1.10 EXTERNAL LAB Blood Result [facility] Provider MD LAB BLOOD ORDERABLES Nely l Result EXTERNAL LAB * (ABNORMAL) Protime-INR (01/11/2025) INR 3.70(A) 0.90 - 1.10 EXTERNAL LAB Blood Result [facility] Provider MD LAB BLOOD ORDERABLES Nely l Result EXTERNAL LAB * (ABNORMAL) Protime-INR (01/04/2025) INR 3.50(A) 0.90 - 1.10 EXTERNAL LAB Blood Result [facility] Provider MD LAB BLOOD ORDERABLES Nely l Result Performing Organization Address City/[facility]/ZIP Co de Phone Number EXTERNAL LAB * POCT lipid panel (12/29/2024 1:55 PM CDT) Cholesterol, POC 177 mg/dL HDL, POC 46 mg/dL Triglycerides, POC 220 mg/dL LDL Cholesterol POC 87 mg/dL Chol/HDL Ratio, POC 1.9 Non-HDL Cholesterol, POC 131 mg/dL Cholesterol Total, POC 177 mg/dL Capillary blood 12/29/2024 1 :[address] [facility] Suhail Haro MD POINT OF CARE TEST ORDERABLES Fi nal Result * SCAN - LABS (12/28/2024) Result [facility] Provider Scanning Final Result * (ABNORMAL) Protime-INR (12/28/2024) INR 3.30(A) 0.90 - 1.10 EXTERNAL LAB Blood Result [facility] Provider MD LAB BLOOD ORDERABLES Nely l Result EXTERNAL LAB * (ABNORMAL) Protime-INR (12/21/2024) INR 2.50(A) 0.90 - 1.10 EXTERNAL LAB Blood Result [facility] Provider MD LAB BLOOD ORDERABLES Nely l Result EXTERNAL LAB * (ABNORMAL) Protime-INR (12/21/2024) Pathologist [facility] INR 2.50(A) 0.90 - 1.10 EXTERNAL LAB Blood Historical Provider LAB BLOOD ORDERABLES Nely l Result EXTERNAL LAB * eGFR (08/20/2024 2:49 AM STEAM FINISHER) Pathologist [facility] eGFR 90 >=60 mL/min/1. 73 m2 Comment: [...] last reviewed 2021. Blood 08/20/2024 2:49 AM STEAM FINISHER 08/20/2024 3:08 AM STEAM FINISHER Suhail Haro MD LAB BLOOD ORDERABLES Final Resul t NONI [id number] [address] [place] [address] * (ABNORMAL) Hemoglobin A1c (08/06/2024 9:51 AM STEAM FINISHER) Pathologist [facility] Hgb A1C 7.2(H) 4.0 - 5.6 % Estimated Average Glucose 160 mg/dL NONI SCHAFER Comment: The ADA recommends reporting an estimated Average Glucose (eAG) with all Hemoglobin A1c results using the equation derived from a study of 507 normal and diabetic adults. Minority populations were underrepresented and children were not included. (Diabetes Care 31:9292-2632, 2008). The eAG is not equivalent to a fasting glucose. Blood 08/06/2024 9:51 AM STEAM FINISHER 08/06/2024 9:58 AM STEAM FINISHER us Suhail Haro MD LAB BLOOD ORDERABLES Final Resul t NONI [id number] [address] [place] [address] from Last 3 Months or Most Recently Relevant to Health Maintenance Insurance [facility] MEDICARE ADVANTAGE [facility] MEDIC[facility] Address: [address] [address] [place] [address] IDPA [facility] MEDICARE ADVANTAGE IDPA [facility] MEDICARE ADVANTAGE [employer] MEDICARE [place] Care Teams Rug Renovator Relationship Specialty Start Date End Date Amado Wray MD PCP - General Family Practice 03/08/22
--- OUTSIDE RECORDS SUMMARY | 2025-03-16 01:04 | XMS_ITS | Encounter Summary ---
Author Organization [facility] Address [facility] [place] [address] Care Team Providers Care Automotive Project Engineer Name Role Phone Amado Wray MD Primary Care Provider Jose De Jesus Mcgee MD Unavailable [phone] Encounter Details Date Type Department Care Team (Late st Contact Info) Description 03/14/2025 Orders Only [facility] [address] [place], [place] [id number] Jose De Jesus Mcgee MD [place] [id number] Social History Tobacco Use Types Packs/Day Years Used Date Smoking Tobacco: Never Assessed Comments Unknown Sex and Gender Information Value Date Recorded Sex Assigned at Not on file Legal Sex Female 8:17 PM CDT Gender Identity Not on file Sexual Orientation Not on file documented as of this encounter Plan of Treatment Not on file documented as of this encounter Results * (ABNORMAL) PARTIAL THROMBOPLASTIN TIME,PTT (03/14/2025 12:53 PM CDT) PTT 43.5(H) 25.1 - 36.5 SEC 03/14/2025 1:11 PM CDT [facility] 03/14/2025 12:5 3 PM CDT us Jose De Jesus Mcgee MD LABORATORY Final Result [facility] [address] [place] [address], documented in this encounter Visit Diagnoses Diagnosis Chronic anticoagulation- Primary Encounter for long-term (current) use of anticoagulants documented in this encounter Additional Health Concerns Infection Onset Date Last Indicated Resolved Time 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 [address] [place] [address] PCP - General FAMILY PRACTICE 08/20/22 Jose De Jesus Mcgee MD [facility] [address] [place] [address] ANESTHESIOLOGY 03/14/25 documented as of this encounter
--- OUTSIDE RECORDS SUMMARY | 2025-03-16 01:04 | XMS_ITS | Clinical Summary ---
Author Organization [facility] Address [address] [place] [address] Care Team Providers Care Chemical Laboratory Assistant Name Role Phone Amado Wray MD Primary Care Provider Jose De Jesus Mcgee MD Unavailable [phone] Encounters Date Type Department Care Team Description 03/14/2025 12:48 PM CDT - 03/14/2025 11:59 PM CDT Hospital Encounter [facility] [address] [place] [address] Jose De Jesus Mcgee MD Arrived Discharge Disposition: Home or Self Care (Routine Discharge) 03/14/2025 12:43 PM CDT - 03/14/2025 12:47 PM CDT Hospital Encounter [facility] [address] [place] [address] Kash Dumont FNP Arrived Discharge Disposition: Home or Self Care (Routine Discharge) 03/14/2025 Orders Only [facility] [address] [place] [address] Kash Dumont FNP 03/14/2025 Orders Only [facility] [address] [place] [address] Jose De Jesus Mcgee MD 03/14/2025 Travel from Last 3 Months Family History Medical History Relation Comments Breast Cancer Sister 40'S Relation Status Comments Sister Social History Tobacco Use Types Packs/Day Years Used Date Smoking Tobacco: Never Assessed Comments Unknown Sex and Gender Information Value Date Recorded Sex Assigned at Not on file Legal Sex Female 8:17 PM CDT Gender Identity Not on file Sexual Orientation Not on file Plan of Treatment Health Maintenance Due Date Last Done Comments Diabetes: Retinopathy Eye Exam 1966 Hepatitis C 1966 DTaP, Tdap and Td Vaccines (1 - Tdap) 1967 Zoster Vaccines (1 of 2) 1998 Annual Medicare Wellness Visit 2013 Pneumococcal Vaccine: 50+ Years (2 of 2 - PCV) 07/17/2019 07/17/2018, 11/03/2013 RSV Immunization or 60+ Years (1 - 1-dose 75+ series) 2023 COVID-19 Vaccine ( season) 2024 08/22/2021, 01/02/2021, 12/11/2020 Hemoglobin A1C 09/13/2025 03/14/2025, 07/17, 09/01/2023 Kidney Health Evaluation 03/14/2026 03/14/2025 Lipid Panel 03/14/2026 03/14/2025, 12/14, 10/30/2023, Additional history exists Dexa Scan (General) Completed 09/23/2024 Meningococcal B Vaccine Aged Out No l onger eligible based on patient's age to complete this topic Meningococcal Vaccine Aged Out No demar julian eligible based on patient's age to complete this topic RSV Immunizations Under 20 Months Aged Out No longer eligible based on patient's age to complete this topic Procedures Procedure Name Priority Date/Time Associated Diagnosis Comments ALBUMIN URINE RANDOM W/CREATININE Routine 03/14/2025 1:47 PM CDT Diabetes mellitus ([facility]) Vitamin D deficiency Hyperlipemia Essential hypertension, malignant PARTIAL THROMBOPLASTIN TIME,PTT Routine 03/14/2025 12:53 PM CDT Chronic anticoagulation HEMOGLOBIN, GLYCOSYLATED Routine 03/14/2025 12:53 PM CDT Diabetes mellitus ([facility]) Vitamin D deficiency Hyperlipemia Essential hypertension, malignant VITAMIN D, 25 OH Routine 03/14/2025 12:5 3 PM CDT Diabetes mellitus ([facility]/HCC) Vitamin D deficiency Hyperlipemia Essential hypertension, malignant LIPID PANEL Routine 03/14/2025 12:53 PM CDT Diabetes mellitus ([facility]/HCC HHS/HCC) Vitamin D deficiency Hyperlipemia Essential hypertension, malignant TSH W/REFLEX Routine 03/14/2025 12:53 PM CDT Diabetes mellitus (CMS/HCC HHS/HCC) Vitamin D deficiency Hyperlipemia Essential hypertension, malignant COMPREHENSIVE METABOLIC PANEL Routine 03/14/2025 12:53 PM CDT Diabetes mellitus (CMS/HCC HHS/HCC) Vitamin D deficiency Hyperlipemia Essential hypertension, malignant CBC W/DIFF AUTOMATED Routine 03/14/2025 12:53 PM CDT Diabetes mellitus ([facility]/HCC HHS/HCC) Vitamin D deficiency Hyperlipemia Essential hypertension, malignant BONE DENSITY/DEXA Routine 09/23/2024 11: 50 AM SALES TECHNICIAN Asymptomatic menopausal state from Last 3 Months or Most Recently Relevant to Health Maintenance Results * MICROALBUMIN CREATININE RATIO (MICROALBUMIN/ALBUMIN) (03/14/2025 1:47 PM CDT) CREATININE (U) 76.5 28 - 217 MG/DL 03/14/2025 2:18 PM CDT [facility] MICROALBUMIN (U) 1.6 <2.0 mg/dL 03/14/20 25 2:18 PM CDT [facility] ALBUMIN/CREAT RATIO 20.9 <30.0 MG/G 03/14/2025 2:18 PM CDT [facility] URINE SPECIMEN / Unknown 03/14/2025 1:47 PM CDT us Kash Dumont PAPERHANGER ASSISTANT URINE ORDERABLES Final Resul t [facility] [address] [place] [address], [place] [phone] * TSH W/REFLEX (03/14/2025 12:53 PM CDT) [facility] TSH 1.060 0.358 - 3.74 uIU/ML 03/14/2025 1:28 PM CDT [facility] Comment: HIGH DOSES OF BIOTIN MAY INTERFERE WITH THIS TEST RESULT. CORRELATION TO CLINICAL HISTORY AND PRESENTATION RECOMMENDED. FREE T4 NOT INDICATED 03/14/2025 12:5 3 PM CDT [facility] LABORATORY Final Result [facility] [address] [place] [address], [place] [phone] * (ABNORMAL) HEMOGLOBIN, GLYCOSYLATED (03/14/2025 12:53 PM CDT) [facility] HGB A1C 8.2(H) <5.7 % 03/14/2025 2:27 PM CDT [facility] Comment: INCREASED RISK OF DIABETES <5.7% NON-DIABETES 5.7-6.4% INCREASED RISK FOR FUTURE DIABETES > OR = 6.5 CONSISTENT WITH DIABETES STANDARDS OF MEDICAL CARE IN DIABETES-2010 DIABETES CARE, 33(SUPP 1): S1-S61,2010 ESTIMATED AVG GLUCOSE 189 mg/dL 03/14/2025 2:27 PM CDT [facility] 03/14/2025 12:5 3 PM CDT [facility] LABORATORY Final Result [facility] [address] [place] [address], [place] [phone] * (ABNORMAL) PARTIAL THROMBOPLASTIN TIME,PTT (03/14/2025 12:53 PM CDT) [facility] PTT 43.5(H) 25.1 - 36.5 SEC 03/14/2025 1:11 PM CDT [facility] 03/14/2025 12:5 3 PM CDT Jose De Jesus Mcgee MD LABORATORY Final Result [facility] [address] [place] [address], * (ABNORMAL) COMPREHENSIVE METABOLIC PANEL (03/14/2025 12:53 PM CDT) GLUCOSE 243(H) 70 - 99 MG/DL 03/14/2025 1:28 PM CDT [facility] BUN 17 7 - 18 MG/DL 03/14/2025 1:28 PM CDT [facility] CREATININE S/P/B 0.98 0.55 - 1.02 MG/DL 03/14/2025 1:28 PM CDT [facility] SODIUM S/P/B 139 136 - 145 MMOL/L 03/14/2025 1:28 PM CDT [facility] POTASSIUM S/P/B 4.2 3.5 - 5.1 MMOL/L 03/14/2025 1:28 PM CDT [facility] CHLORIDE S/P/B 104 100 - 108 MMOL/L 03/14/2025 1:28 PM CDT [facility] CO2 25.7 21 - 32 MMOL/L 03/14/2025 1:28 PM CDT [facility] CALCIUM S/P/B 9.3 8.5 - 10.1 MG/DL 03/14/2025 1:28 PM CDT [facility] BILIRUBIN TOTAL S/P/B 0.8 0.2 - 1.2 MG/DL 03/14/2025 1:28 PM CDT [facility] TOTAL PROTEIN S/P/B 7.7 6.4 - 8.2 G/DL 03/14/2025 1:28 PM T [facility] ALBUMIN S/P/B 4.2 3.4 - 5.0 G/DL 03/14/2025 1:28 PM T [facility] AST 18 15 - 37 U/L 03/14/2025 1:28 PM T [facility] ALT 24 14 - 55 U/L 03/14/2025 1:28 PM T [facility] ALKALINE PHOSPHATASE S/P/B 42(L) 50 - 136 U/L 03/14/2025 1:28 PM T [facility] ANION GAP 9.3 5 - 15 MMOL/L 03/14/2025 1:28 PM T [facility] BUN CREATININE RATIO 17.3 6 - 26 03/14/2025 1:28 PM [facility] A/G RATIO 1.2 1.0 - 2.0 RATIO 03/14/2025 1:28 PM [facility] GFR ESTIMATE 60(L) >90 ML/MIN/1.7 3 M2 03/14/2025 1:28 PM [facility] Comment: NOTE: eGFR is not calculated for patients <18 years of age. This is an estimated GFR calculation using the new CKD EPI creatinine equation without race and so does not require a correction factor for race. This estimated GFR should not be used for calculating drug doses. 03/14/2025 12:5 3 PM CDT us Kash Dumont PAPERHANGER ASSISTANT LABORATORY Final Result [facility] [address] [place] [address], [place] [phone] * (ABNORMAL) LIPID PANEL (03/14/2025 12:53 PM CDT) CHOLESTEROL 192 <200.0 MG/DL 03/14/2025 1:28 PM CDT [facility] TRIGLYCERIDES 261(H) <150 MG/DL 03/14/2025 1:28 PM CDT [facility] HDL 48 >40.0 MG/DL 03/14/2025 1:28 PM CDT [facility] LDL (CALCULATED) 92 <100 MG/DL 03/14/2025 1:28 PM CDT [facility] Comment:CALCULATED USING THE FRIEDEWALD EQUATION NON HDL CHOLESTEROL 144(H) <130 MG/DL 03/14/2025 1:28 PM CDT [facility] CHOL/HDL RATIO 4.0 0.0 - 4.5 03/14/2025 1:28 PM T [facility] VLDL CALCULATION 52 5 - 55 MG/DL 03/14/2025 1:28 PM T [facility] LIPID INTERPRETATION 03/14/2025 1:28 PM T [facility] Comment: NIH CONCENSUS REPORT RECOMMENDATIONS: ADULT CHILD LOW RISK: CHOLESTEROL <200 <170 TRIGLYCERIDE <150 --- HDL >=60 --- LDL <100 <110 BORDERLINE: CHOLESTEROL 200-239 170-199 TRIGLYCERIDE 150-199 --- HDL 40-59 --- LDL 100-159 110-129 HIGH RISK: CHOLESTEROL >=240 >=200 TRIGLYCERIDE >=200 --- HDL <40 --- LDL >=160 >=130 03/14/2025 12:5 3 PM CDT us Kash AMAYAP LABORATORY Final Result [facility] [address] [place] [address], [place] [phone] * (ABNORMAL) CBC W/DIFF AUTOMATED (03/14/2025 12:53 PM CDT) [facility] WBC 7.09 4.4 - 11.0 x10'3/uL 03/14/2025 1:03 PM CDT [facility] RBC 3.95(L) 4.50 - 5.10 x10'6/uL 03/14/2025 1:03 PM CDT [facility] HGB 12.7 12.3 - 15.3 G/DL 03/14/2025 1:03 PM CDT [facility] HCT 38.7 35.9 - 44.6 % 03/14/2025 1:03 PM CDT [facility] MCV 98.0(H) 80.0 - 96.0 FL 03/14/2025 1:03 PM CDT [facility] MCH 32.2(H) 25.3 - 30.9 PG 03/14/2025 1:03 PM CDT [facility] MCHC 32.8 31.0 - 34.1 G/DL 03/14/2025 1:03 PM CDT [facility] RDW 12.8 12.4 - 15.1 % 03/14/2025 1:03 PM CDT [facility] PLT 174 151 - 353 x10'3/uL 03/14/2025 1:03 PM CDT [facility] MPV 10.2 9.6 - 12.0 FL 03/14/2025 1:03 PM CDT [facility] RBC MORPHOLOGY NORMAL 03/14/2025 1:03 PM T [facility] PLT MORPH. NORMAL 03/14/2025 1:03 PM CDT [facility] WBC MORPHOLOGY NORMAL 03/14/2025 1:03 PM CDT [facility] LYMPHOCYTES % 23.7 15.8 - 45.0 % 03/14/2025 1:03 PM CDT [facility] NEUTROPHILS % 65.5 42.1 - 71.9 % 03/14/2025 1:03 PM CDT [facility] MONOCYTES % 6.2 5.7 - 12.5 % 03/14/2025 1:03 PM CDT [facility] EOSINOPHILS 3.5 0.0 - 5.6 % 03/14/2025 1:03 PM CDT [facility] BASOPHILS 1.0 0.0 - 1.3 % 03/14/2025 1:03 PM CDT [facility] ABS. NEUTROPHILS 4.64 1.40 - 6.00 x10'3/uL 03/14/2025 1:03 PM CDT [facility] IMMATURE GRANS % 0.1 0.0 - 0.5 % 03/14/2025 1:03 PM CDT [facility] ABS. LYMPHOCYTES 1.68 0.80 - 4.70 x10'3/uL 03/14/2025 1:03 PM CDT [facility] 03/14/2025 12:5 3 PM CDT Kash Dumont [facility] Final Result [facility] [address] [place] [address], * VITAMIN D, 25 OH (03/14/2025 12:53 PM CDT) VITAMIN D 25 HYDROXY S/P/B 33 30 - 100 NG/ML 03/14/2025 8:31 PM CDT [facility] Comment: INTERPRETATION DEFICIENT <20 INSUFFICIENT 20-29 SUFFICIENT 30-100 03/14/2025 12:5 3 PM CDT us Kash Dumont PAPERHANGER ASSISTANT LABORATORY Final Result [facility] [address] [place] [address], [place] [phone] * BONE DENSITY/DEXA (09/23/2024 11:50 AM SALES TECHNICIAN) Anatomical Region Laterality Modality Bone Bone Density 09/24/2024 6:29 AM SALES TECHNICIAN Impressions 09/24/2024 6:30 AM SALES TECHNICIAN IMPRESSION: WHO Classification: Normal RECOMMENDATIONS: All patients should ensure an adequate intake of dietary calcium and vitamin D. The NOF recommend adults under the age of 50 need 1000 mg of calcium and 400-800 IU of vitamin D daily. Effective therapy for the prevention and treatment of osteoporosis include bisphosphonates. Follow-up: People with diagnosed cases of osteoporosis or at high risk for fracture should have regular bone mineral density test. For patients eligible for Medicare, routine testing is allowed once every 2 years. Testing frequency can be increased to one year for patients who have rapidly progressing disease, those who are receiving or discontinuing medical therapy to restore bone mass, or have additional risk factors. Referred By: KASH DUMONT Interpreted By: Jake Guillen MD, 09/24/2024 6:29 AM Narrative 09/24/2024 6:30 AM SALES TECHNICIAN [facility] [address] [facility] [place] [address] EXAMINATION: BONE DENSITY/DEXA INDICATIONS: Asymptomatic menopausal state TECHNIQUE: DEXA bone mineral density evaluation was performed in the AP projection over the lumbar spine and both hips utilizing standard imaging techniques. ASSESSMENT: The BMD measured at the AP spine L1-L4 is 1.078 g/cm? with a T-score of 0.3. The BMD measured at the left femoral neck is 0.766 g/cm? with a T-score of -0.7. The BMD measured at the left hip is 0.879 g/cm? with a T-score of -0.5. The BMD measured at the right femoral neck is 0.764 g/cm? with a T-score of - 0.8. The BMD measured at the right hip is 0.827 g/cm? with a T-score of -0.9. FRAX 10-year fracture risk: Not reported because all T scores are at or above -1.0 Procedure Note Jake Guillen MD - 09/24/2024 [facility] [address] [place] [address] EXAMINATION: BONE DENSITY/DEXA INDICATIONS: Asymptomatic menopausal state TECHNIQUE: DEXA bone mineral density evaluation was performed in the APprojection over the lumbar spine and both hips utilizing standard imagingtechniques. ASSESSMENT: The BMD measured at the AP spine L1-L4 is 1.078 g/cm? with a T-score of0.3. The BMD measured at the left femoral neck is 0.766 g/cm? with a T-score of-0.7. The BMD measured at the left hip is 0.879 g/cm? with a T-score of -0.5. The BMD measured at the right femoral neck is 0.764 g/cm? with a T-scoreof -0.8. The BMD measured at the right hip is 0.827 g/cm? with a T-score of -0.9. FRAX 10-year fracture risk: Not reported because all T scores are at or above -1.0 IMPRESSION: WHO Classification: Normal RECOMMENDATIONS: All patients should ensure an adequate intake of dietary calcium andvitamin D. The NOF recommend adults under the age of 50 need 1000 mg ofcalcium and 400-800 IU of vitamin D daily. Effective therapy for theprevention and treatment of osteoporosis include bisphosphonates. Follow-up: People with diagnosed cases of osteoporosis or at high risk for fractureshould have regular bone mineral density test. For patients eligible forMedicare, routine testing is allowed once every 2 years. Testing frequencycan be increased to one year for patients who have rapidly progressingdisease, those who are receiving or discontinuing medical therapy torestore bone mass, or have additional risk factors. Referred By: KASH DUMONT Interpreted By: Jake Guillen MD, 09/24/2024 6:29 AM Kash Dumont PAPERHANGER ASSISTANT DEXA Final Result from Last 3 Months or Most Recently Relevant to Health Maintenance Additional Health Concerns Infection Onset Date Last Indicated MRSA 10/05/2018 10/05/2018 Insurance MEDICAID Care Teams Chemical Laboratory Assistant Relationship Specialty Start Date End Date Amado Wray MD [address] [facility] [address] [place] [address] PCP - General FAMILY PRACTICE 08/20/22 Jose De Jesus Mcgee MD [facility] [address] [facility] [address] [place] [address] ANESTHESIOLOGY 03/14/25
--- OUTSIDE RECORDS SUMMARY | 2025-03-16 01:04 | XMS_ITS | Encounter Summary ---
Author Organization [facility] Address [address] [place] [address] Care Team Providers Care Host/Hostess Head Name Role Phone Amado Wray MD Primary Care Provider Jose De Jesus Mcgee MD Unavailable [phone] Encounter Details Date Type Department Care Team (Latest Contact Info) Description 03/14/2025 12:48 PM CDT - 03/14/2025 11:59 PM CDT Hospital Encounter [facility] [address] [place] [address] Jose De Jesus Mcgee MD [address] [address] Arrived Discharge Disposition: Home or Self Care (Routine Discharge) Social History Tobacco Use Types Packs/Day Years [...] Procedure Name Priority Date/Time Associated Diagnosis Comments PARTIAL THROMBOPLASTIN TIME,PTT Routine 03/14/2025 12:53 PM CDT Chronic anticoagulation documented in this encounter Results * (ABNORMAL) PARTIAL THROMBOPLASTIN TIME,PTT (03/14/2025 12:53 PM CDT) PTT 43.5(H) 25.1 - 36.5 SEC 03/14/2025 1:11 PM CDT [facility] 03/14/2025 12:5 3 PM CDT Jose De Jesus Mcgee MD LABORATORY Final Result [facility] [address] [place] [address], documented in this encounter Visit Diagnoses Diagnosis Chronic anticoagulation Encounter for long-term (current) use of anticoagulants documented in this encounter Additional Health Concerns Infection Onset Date Last Indicated Resolved Time MRSA 10/05/2018 10/05/2018 documented as of this encounter Care Teams Host/Hostess Head Relationship Specialty Start Date End Date Amado Wray MD [address] [address] [place] [address] PCP - General FAMILY PRACTICE 08/20/22 Jose De Jesus Mcgee MD [facility] [address] [facility] [address] [place] [address] ANESTHESIOLOGY 03/14/25 documented as of this encounter
--- NOTE | 2025-03-16 07:02 | WPDHPUPDATE1 ---
History and Physical Update Update Date/Time: 03/16/25 07:02 Patient seen and examined in pre-operative holding area. No interval change in medical history or symptoms. Patient recalls previous discussion of benefits and alternatives to procedure. Continues to desire to proceed with left cubital tunnel release. Reviewed procedure, post-op expectations and risks including but not limited to bleeding, infection, injury to tendon/nerve/vessel, decreased hand function, stiffness, RSD, no change or worsening of symptoms. I discussed the possible use of assistants and their participation in the case. Patient stated understanding and signed the consent form wishing to proceed.
--- NOTE | 2025-03-16 07:02 | W.PM.PROC2 ---
Procedure Note - Detailed Date of Procedure 03/16/25 Pre-op Diagnosis left cubital tunnel syndrome Post-op Diagnosis Same Procedure Performed left CuTR Surgeon Jemma Villeda MD Leather Grainer trisha garcía pa-c Anesthesia MAC Description of Procedure INFORMED CONSENT:The patient was seen and examined and marked in the pre-op area.? The patient signed the consent form. PROCEDURE IN DETAIL: The patient taken back to OR on the stretcher in supine position. Time out performed with anesthesia, surgeon and staff agreeing on patient's name site and surgery to be performed SCDs were placed on the lower extremities and inflated A tourniquet was placed on {left} upper extremity and antibiotics given IV After anesthesia administered sedation I injected {7}cc 1%lido with epi and 0.5% marcaine plain at the operative site The?{/left upper extremity}?was prepped and draped in sterile fashion the??{left upper extremity} was??exsanguinated with Esmarch bandage and tourniquet inflated to 250mmHg I next proceeded with making a longitudinal incision between two heads for flexor carpi ulnaris at end of {left} cubital tunnel with 15 blade scalpel.? Littler scissors were used to spread down to FCU fascia.? An incision was made in FCU fascia and ulnar nerve identified exiting cubital tunnel.? I proceeded with complete retrograde release of the cubital tunnel including 7cm proximal for the intermuscular septum.? The nerve appeared healthy with visible vaso nervorum.? There was no subluxation on full elbow range of motion. ? I irrigated with normal saline and closure with 4-0 monocryl for dermis and subcuticular. The incision was covered with Dermabond then 4x4s, blu, and a posterior elbow splint for patient safety, security and comfort and secured with toña bandages after the tourniquet was let down noting the hand was warm and well perfused.? Patient awaken from anesthesia and transferred to recovery in stable condition Complications - none EBL- 1cc Disposition - home in stable condition Trisha García PA-C was essential for positioning, retraction, closure and dressing placement [facility] Billing Surgery - Charge Forward: Surgery Billing ([id number] for trisha)
[2025-03-16] MEDS: LACTATED RINGERS 1,000 ML 30 ML IV CONT (10:20)
[2025-03-16 10:31] VITALS: BP 139/90; PULSE 60; RESP 18; TEMP 36.5; O2SAT 98
[2025-03-16 10:38] LABS: INR 1.2; Prothrombin Time 15.6 Seconds (11.1-14.7)
[2025-03-16 10:39] LABS: Partial Thromboplastin Time 32.0 Seconds (22.3-36.8)
--- NOTE | 2025-03-16 11:21 | WPDANESEPPF ---
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 Patient Data Age: 74 Gender: F Height: 1.6 m Weight: 70 kg Last Vital Signs Temp 36.5 C 03/16/25 10:31 Pulse 60 03/16/25 10:31 Resp 18 03/16/25 10:31 BP 139/90 03/16/25 10:31 Pulse Ox 98 03/16/25 10:31 O2 Del Method Room Air 03/16/25 10:31 Allergies Allergy/AdvReac Type Severity Reaction Status Date / Time diphenhydramine Allergy Mild Nausea Verified 03/16/25 10:28 codeine Allergy Unknown Unknown Verified 03/16/25 10:28 ibuprofen Allergy Unknown Unknown Verified 03/16/25 10:28 Quinolones Allergy Unknown Unknown Verified 03/16/25 10:28 iron AdvReac Intermediate upset Verified 03/16/25 10:28 stomach Home Medications ?Medication ?Instructions ?Recorded ?Confirmed ?Type lisinopril 20 mg tablet 20 mg PO DAILY 08/03/19 03/14/25 History acetaminophen 500 mg tablet 650 mg PO DAILY 08/10/19 03/14/25 History (Tylenol Extra Strength) diphenhydramine 25 2 tablet PO HS PRN Insomnia 08/10/19 03/14/25 History mg-acetaminophen 500 mg tablet (Tylenol PM Extra Strength) blood-glucose meter (Blood Glucose #1 ea 11/20/20 03/14/25 Rx Monitoring kit) famotidine 20 mg tablet 20 mg PO DAILY PRN gastric reflux 03/04/23 03/14/25 History fenofibrate 160 mg tablet 160 mg PO DAILY #90 tabs 03/04/23 03/14/25 Rx fluticasone propionate 50 1 spray intranasal DAILY PRN 08/27/23 03/14/25 History mcg/actuation nasal allergy symptoms spray,suspension sotalol 80 mg tablet 80 mg PO Q12H 10/25/24 03/14/25 History atorvastatin 10 mg tablet 10 mg PO QHS #90 tabs 11/01/24 03/14/25 Rx blood sugar diagnostic (Accu-Chek #100 ea 11/24/24 03/14/25 Rx Guide test strips) gabapentin 100 mg capsule 200 mg (2 x 100 mg) PO BID #360 01/05/25 03/14/25 Rx caps alendronate 70 mg tablet See Rx Instructions .Route 01/06/25 03/14/25 Rx .COMPLEX #12 tabs empagliflozin 25 mg tablet 25 mg PO DAILY #90 tabs 01/07/25 03/14/25 Rx (Jardiance) enoxaparin 60 mg/0.6 mL 0.7 mg subcut Q12H 03/09/25 03/14/25 History subcutaneous syringe warfarin 3 mg tablet 3 mg PO DAILY #30 tabs 03/09/25 03/14/25 Rx warfarin 4 mg tablet 4 mg PO DAILY #30 tabs 03/09/25 03/14/25 Rx glimepiride 1 mg tablet 1 mg PO QAM #90 tabs 03/14/25 Rx tramadol 50 mg tablet 50 mg PO Q6H PRN pain #12 tabs 03/16/25 Rx Laboratory Tests 03/16/25 03/16/25 10:12 10:18 PT 15.6 H Seconds (11.1-14.7) INR 1.2 APTT 32.0 Seconds (22.3-36.8) POC Capillary Glucose 164 H mg/dl (65-105) Patient hx anesthesia problems: none Family hx anesthesia problems: none Results Review: All pre-operative results and documents have been reviewed as part of the pre-operative evaluation. [facility] Past Medical History Medical History Screening for breast cancer Restless leg syndrome Environmental allergies Osteopenia Aortic stenosis GERD without esophagitis Anxiety Osteoporosis Started alendronate 11/13/18. Last DEXA scan 2019 per old chart. 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 Low back pain Neuropathy due to type 2 diabetes mellitus Other hyperlipidemia Paroxysmal atrial fibrillation Type 2 diabetes mellitus with other specified complication (~2010) Valvular heart disease Surgical History Surgical History History of left cataract surgery (~07/2023) History of cholecystectomy (~01/2004) History of mitral valve replacement (~2002) Hx of total hysterectomy (~1991) History of surgery on arm (~1957) ORIF - Right forearm pinning H/O skin graft (~1949) Back Family History Family History Sibling Patient's sister is in good health Patient's brother is in good health Family history of malignant neoplasm Family history of type 2 diabetes mellitus Family history of pulmonary embolism Patient's sister is Patient's brother is Acute myocardial infarction Mother Patient's mother is , Onset Age: 96 Grandparent Family history of malignant neoplasm, Onset Age: 59 Social History Social History Social History: 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 Patient never , she has no children. She and her dog live in her own apartment in [place]. She designates her niece, Tawnya Tillman as her surrogate decision maker. Smoking status: Never smoker Second hand tobacco smoke exposure: No Alcohol intake: never Substance use: never Substance use type: does not use Lack of Transportation: No Lack of Food: Never True Current Housing: I Have Housing Concerned About Future Housing: No Difficulty Paying Gas/Electric Bills: No Difficulty Paying for Meds: No Currently Unemployed: No Education: High School Diploma/GED Difficulty w/ Childcare or Family Care: No Living arrangements: alone Gender identity (if verbalized by the patient): Female Spiritual care concerns: No Anes - Eval Final PreProcedure Day of Procedure 03/16/25 11:21 Patient weight: overweight Heart: regular rate and rhythm Lungs: clear to auscultation Airway: Mallampati scale class II Neurological: alert and oriented Last oral intake: >/= 8 hours ASA classification: III Emergent: no Anesthetic plan: proceed Anesthesia type and monitoring: general GIVS and standard monitoring Results Review: All pre-operative results and documents have been reviewed as part of the pre-operative evaluation. Informed Consent: The patient's anesthetic plan and its attendant risks and benefits were discussed with the patient/family/POA. Questions were solicited and answers provided to the satisfaction of the patient/family/POA.
[2025-03-16] MEDS: BUPivacaine HCL 0.5% 10 ML AMP INFILTRATE (11:25)
[2025-03-16] MEDS: LIDO 1%/EPINEPHRINE 1:100,000 20 ML VIAL 10 ML INFILTRATE (11:25)
[2025-03-16] MEDS: ceFAZolin 2 GM/D5W 50 ML 2 GM/50 ML BAG IVPB (11:29)
[2025-03-16 11:53] VITALS: BP 117/53; PULSE 56; RESP 20
[2025-03-16 12:15] VITALS: BP 101/62; PULSE 54; RESP 20
[2025-03-16 12:45] VITALS: BP 113/60; PULSE 56
[2025-03-16 13:15] VITALS: BP 108/68; PULSE 62; RESP 20
== END 2025-03-16 13:22 | disposition home or self-care (01) ==
PROVIDERS: Anesthesiology; PCP Family Medicine; Visit Provider Plastic Surgery
PROC: (CPT 64718; principal; 2025-03-16 11:30)
DX: G56.22 Lesion of ulnar nerve, left upper limb (principal); Z79.01 Long term (current) use of anticoagulants; Z79.84 Long term (current) use of oral hypoglycemic drugs
CPT/HCPCS: 64718; 36415; 82948; 85610; 85730; J0690; J2003; J2004; J2250; J2371; J2704; J7120

== ENCOUNTER 2025-06-02 01:11 | Day surgery (SDC) | payer MEDICARE, MEDICAID, SELFPAY ==
[2025-05-19 15:10] VITALS: BMI 27.7
--- NOTE | 2025-05-19 15:18 | PC.NURSE ---
Addendum entered by Ursula Lay RN 05/19/25 15:31: Pt requests to have labs done at [facility] the week before on 05/26/25 and will fax orders. 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 Planned Procedure Time: __10:15am .? Time changes happen often and if your time is changed the preop area will call you the afternoon before. - You and your visitor will be asked to self-screen and do not enter if you have any COVID symptoms. Please call surgeon if you need to reschedule. - A mask is optional within the hospital at this time. Patients may have No food or drink from midnight until time of surgery and no smoking, or chewing tobacco (or any form of nicotine). No chewing gum, candy or mints. Take only the following medications with a SIP of water on the morning of surgery: ___Sotalol and Gabapentin, Tylenol if needed DO NOT STOP ANY OF YOUR OTHER PRESCRIPTION MEDICATIONS PRIOR TO SURGERY EXCEPT THE FOLLOWING Hold all vitamins and supplements for 3 days per anesthesiologist. Medications to discontinue per physician ___Coumadin per Dr Fonseca and then pt will bridge w Enoxaparin like previous, once off Coumadin Date to take last dose___per Dr Fonseca. Pt will take her last dose of Enoxaparin on 06/01/25 at 0900am. Please no make-up, nail scottish, hairspray, perfume, deodorant, or body powder the day of surgery.? No jewelry (including any body piercings) or valuables the day of surgery, leave them at home.? Please take a shower or bath the night before, or the morning of, surgery with an antibacterial soap.? Wear comfortable, loose fitting clothing.? - Jewelry must be removed prior to entering the operating room.? Rings and piercings that are not removed may be cut off. - The hospital will not accept responsibility for valuables.? - Please leave all valuables, including medications, at home the day of surgery. If you are going home after surgery, a licensed solid waste truck driver must drive you home.? - NO public transportation without another adult if you receive anesthesia. - We recommend that an adult stay with you for 24 hours following discharge. - We also recommend that you do not drive, make important decision, drink alcoholic beverages, or take any drugs that were not prescribed by your health care provider for at least 24 hours after your discharge time. Follow any additional instructions given to you from your surgeon. Telephone instructions given to ____Patient and asked if any additional questions and then verbalized understanding. Patient advised to call surgeon office or pre surgery nurse liaison [phone] if any additional questions.
--- OUTSIDE RECORDS SUMMARY | 2025-06-02 01:14 | XMS_ITS | Encounter Summary ---
Author Organization [facility] Healthcare Address [address] [place] [address] Care Team Providers Care Leadership Coach Name Role Phone Amado Wray MD Primary Care Provider Encounter Details Date Type Department Care Team (Late st Contact Info) Description 07/22/2023 Orders Only [facility] [place] Information Management [address] [place] [id number] Scanning, Provider Social History Tobacco Use Types Packs/Day Years Used Date Smoking Tobacco: Never Smokeless Tobacco: Never Alcohol Use Standard Drinks/Week Comments No 0 (1 standard drink = 0.6 oz pur e alcohol) Comments Unknown Sex and Gender Information Value Date Recorded Sex Assigned at Not on file 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
--- OUTSIDE RECORDS SUMMARY | 2025-06-02 01:14 | XMS_ITS | Encounter Summary ---
Author Organization [facility] Healthcare Address [address] [place] [address] Care Team Providers Care Box Hinge And Lock Attacher Name Role Phone Amado Wray MD Primary Care Provider Encounter Details Date Type Department Care Team (Late st Contact Info) Description 10/07/2022 Orders Only [facility] [place] [address] [place] [address] Scanning, Provider Social History Tobacco Use Types Packs/Day Years Used Date Smoking Tobacco: Never Smokeless Tobacco: Never Alcohol Use Standard Drinks/Week Comments No 0 (1 standard drink = 0.6 oz pur e alcohol) Comments Unknown Sex and Gender Information Value Date Recorded Sex Assigned at Not on file 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 Gender Identity Not on file Sexual Orientation Not on file documented as of this encounter Plan of Treatment Not on file documented as of this encounter Procedures Procedure Name Priority Date/Time Associated Diagnosis Comments SCAN - LABS 10/07/2022 documented in this encounter Results * SCAN - LABS (10/07/2022) us Provider Scanning Final Result documented in this encounter Visit Diagnoses Not on filedocumented in this encounter Care Teams Box Hinge And Lock Attacher Relationship Specialty Start Date End Date Amado Wray MD PCP - General Family Practice 03/08/22 documented as of this encounter
--- OUTSIDE RECORDS SUMMARY | 2025-06-02 01:14 | XMS_ITS | Encounter Summary ---
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
--- OUTSIDE RECORDS SUMMARY | 2025-06-02 01:14 | XMS_ITS | Encounter Summary ---
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
--- OUTSIDE RECORDS SUMMARY | 2025-06-02 01:14 | XMS_ITS | Encounter Summary ---
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
--- OUTSIDE RECORDS SUMMARY | 2025-06-02 01:15 | XMS_ITS | Encounter Summary ---
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
--- OUTSIDE RECORDS SUMMARY | 2025-06-02 01:15 | XMS_ITS | Encounter Summary ---
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
--- OUTSIDE RECORDS SUMMARY | 2025-06-02 01:15 | XMS_ITS | Encounter Summary ---
Author Organization [facility] Healthcare Address [address] [place] [address] Care Team Providers Care Sales Representative Advertising Name Role Phone Amado Wray MD Primary Care Provider Encounter Details Date Type Department Care Team ([facility] st Contact Info) Description 07/13/[address] [facility] [place] Health Information Management [address] [place] [address] Scanning, Provider Social History Tobacco Use Types Packs/Day Years Used Date Smoking Tobacco: Never Smokeless Tobacco: Never Alcohol Use Standard Drinks/Week Comments No 0 (1 standard drink = 0.6 oz pur e alcohol) AUDIT-C Answer Date Recorded Frequency of Alcohol Consumption Not on file 06/14/2024 Q2: How many drinks containi ng alcohol do you have on a typical day when you are drinking? Patient does not drink Frequency of Binge Drinking Not on file 05/18 Personal Safety Answer Date Recorded Have you ever been in or are you currently in a harmful physical or emotional relationship or is someone making you feel afraid or unsafe? 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 Gender Identity Not on file Sexual Orientation Not on file documented as of this encounter Plan of Treatment Not on file documented as of this encounter Procedures Procedure Name Priority Date/Time Associated Diagnosis Comments SCAN - LABS 07/13/2024 documented in this encounter Results * SCAN - LABS (07/13/2024) us Provider Scanning Final Result documented in this encounter Visit Diagnoses Not on filedocumented in this encounter Care Teams Sales Representative Advertising Relationship Specialty Start Date End Date Amado Wray MD PCP - General Family Practice 03/08/22 documented as of this encounter
--- OUTSIDE RECORDS SUMMARY | 2025-06-02 01:15 | XMS_ITS | Encounter Summary ---
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 Gender Identity Not on file Sexual Orientation Not on file documented as of this encounter Plan of Treatment Not on file documented as of this encounter Procedures Procedure Name Priority Date/Time Associated Diagnosis Comments SCAN - LABS 11/02/2024 documented in this encounter Results * SCAN - LABS (11/02/2024) us Provider Scanning Final Result documented in this encounter Visit Diagnoses Not on filedocumented in this encounter Care Teams Clinical Documentation Consultant Relationship Specialty Start Date End Date Amado Wray MD PCP - General Family Practice 03/08/22 documented as of this encounter
--- OUTSIDE RECORDS SUMMARY | 2025-06-02 01:15 | XMS_ITS | Encounter Summary ---
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
--- OUTSIDE RECORDS SUMMARY | 2025-06-02 01:15 | XMS_ITS | Clinical Summary ---
Author Organization [facility] [address] Address [address] [place] [address] Care Team Providers Care Ladderman Name Role Phone Amado Wray MD Primary [...] every morning 4 Active folic/mvi ther-min/lycop /lut (LEHCBS-SVO-IN -LYCOPENE-LUTE IN ORAL) Take by mouth Active [...] twice daily 180 tablet 3 5 Active enoxaparin (LOVENOX) 80 mg/0.8 mL syringe Inject 0.8 mL (80 mg total) under the skin every 12 (twelve) hours 11.2 mL 1 5 Active Active Problems Problem Noted Date Diagnosed Date S/P TAVR (transcatheter aortic valve replacement ) 08/19/2024 QT prolongation 05/28/2021 PAF (paroxysmal atrial fibrillation) ([facility]) 0 10/22/2018 Encounter for monitoring sotalol therapy 018 Mixed diabetic hyperlipidemi a associated with type 2 diabetes mellitus ([facility]) 10/01/2016 Overview (12/20/2016): DM type 2 with [...] Encounters Date Type Department Care Team Description 05/31/2025 Anticoagulation Visit [facility] Cardiology [address] [place] [address] [place] [phone] Merry Carmichael RN History of mitral valve replacement with mechanical valve (Primary Dx); PAF (paroxysmal atrial fibrillation) ([facility]/HCC) (HCC) 05/31/2025 Telephone [facility] Cardiology [address] [place] [address] [address] [place] [phone] Suhail Haro MD 05/25/2025 Anticoagulation Visit [facility] Cardiology at [address] [place] [address] Santa Addison RN History of mitral valve replacement with mechanical valve (Primary Dx); PAF (paroxysmal atrial fibrillation) (CMS/HCC) (HCC) 05/25/2025 Telephone [facility] Cardiology [address] [place] [address] [address] [place] [phone] Suhail Haro MD 05/18/2025 Orders Only [facility] Health Information Management [address] [place] [address] Scanning, Provider 05/18/2025 Anticoagulation Visit [facility] Cardiology [address] [facility] [address] [place] [phone] Merry Carmichael RN History of mitral valve replacement with mechanical valve (Primary Dx); PAF (paroxysmal atrial fibrillation) (CMS/HCC) (HCC) 05/17/2025 Orders Only [facility] Health Information Management [address] [place] [phone] Scanning, Provider 05/17/2025 Anticoagulation Visit [facility] Cardiology [address] [place] [address] [address] [place] [phone] Merry Carmichael RN History of mitral valve replacement with mechanical valve (Primary Dx); PAF (paroxysmal atrial fibrillation) (CMS/HCC) (HCC) 05/10/2025 Orders Only [facility] Health Information Management [address] [place] [address] Scanning, Provider 05/10/2025 Anticoagulation Visit [facility] Cardiology [address] [place] [address] [place] [phone] Merry Carmichael RN History of mitral valve replacement with mechanical valve (Primary Dx); PAF (paroxysmal atrial fibrillation) (CMS/HCC) (HCC) 05/10/2025 Telephone [facility] Cardiology [address] [place] [address] [place] [phone] Suhail Haro MD 05/03/2025 Orders Only [facility] Health Information Management [address] [place] [phone] Scanning, Provider 05/03/2025 Anticoagulation Visit [facility] Cardiology [address] [place] [address] [address] [place] [phone] Merry Carmichael RN History of mitral valve replacement with mechanical valve (Primary Dx); PAF (paroxysmal atrial fibrillation) (CMS/HCC) (HCC) 04/26/2025 Orders Only [facility] Health Information Management [address] [place] [phone] Scanning, Provider 04/26/2025 Anticoagulation Visit [facility] Cardiology [address] [place] [address] [address] [place] [phone] Merry Carmichael RN History of mitral valve replacement with mechanical valve (Primary Dx); PAF (paroxysmal atrial fibrillation) (CMS/HCC) ([facility]) 04/19/2025 Orders Only [facility] Health Information Management [address] [place] [phone] Scanning, Provider 04/19/2025 Anticoagulation Visit [facility] Cardiology [address] [place] [address] [place] [phone] Merry Carmichael RN History of mitral valve replacement with mechanical valve (Primary Dx); PAF (paroxysmal atrial fibrillation) (CMS/HCC) ([facility]) 04/12/2025 Orders Only [facility] Health Information Management [address] [place] [phone] Scanning, Provider 04/12/2025 Anticoagulation Visit [facility] Cardiology [address] [place] [address] [place] [phone] Merry Carmichael RN History of mitral valve replacement with mechanical valve (Primary Dx); PAF (paroxysmal atrial fibrillation) (CMS/HCC) ([facility]) 04/05/2025 Anticoagulation Visit [facility] Cardiology [address] [place] [address] [place] [phone] Merry Carmichael RN History of mitral valve replacement with mechanical valve (Primary Dx); PAF (paroxysmal atrial fibrillation) ([facility]/HCC) ([facility]) 03/29/2025 Orders Only [facility] Health Information Management [address] [place] [phone] Scanning, Provider 03/29/2025 Anticoagulation Visit [facility] Cardiology [address] [place] [address] [place] [phone] Merry Carmichael RN History of mitral valve replacement with mechanical valve (Primary Dx); PAF (paroxysmal atrial fibrillation) (CMS/HCC) ([facility]) 03/25/2025 Anticoagulation Visit [facility] Cardiology at [address] [place] [phone] Santa Addison RN History of mitral valve replacement with mechanical valve (Primary Dx); PAF (paroxysmal atrial fibrillation) (CMS/HCC) ([facility]) 03/25/2025 Telephone [facility] Cardiology [address] [place] [address] [place] [phone] Suhail Haro MD 03/21/2025 Anticoagulation Visit [facility] Cardiology [address] [place] [address] [place] [phone] Merry Carmichael RN History of mitral valve replacement with mechanical valve (Primary Dx); PAF (paroxysmal atrial fibrillation) (CMS/HCC) (HCC) 03/21/2025 Telephone [facility] Cardiology [address] [place] [address] [place] [phone] Suhail Haro MD 03/09/2025 Anticoagulation Visit [place] [address] [place] [phone] Merry Carmichael RN History of mitral valve replacement with mechanical valve (Primary Dx); PAF (paroxysmal atrial fibrillation) (CMS/HCC) (HCC) 03/09/2025 Telephone [place] [address] [place] [phone] Suhail Haro MD 03/03/2025 Results Follow-Up [facility] Cardiology [address] [place] [address] [place] [phone] Suhail Haro MD Transthoracic Echo (TTE) Complete W Doppler/CF 03/02/2025 1:00 PM CDT Ancillary Procedure [place] [address] [place] [phone] S/P TAVR (transcatheter aortic valve replacement); History of mitral valve replacement with mechanical valve from Last 3 Months Surgical History Surgery Date Site/Laterality Comments OTHER SURGICAL HISTORY SJM [facility] MVR 06/17; katharina, hyst, skin graft MECHANICAL MITRAL VALVE REPLACEMENT CHOLECYSTECTOMY HYSTERECTOMY SKIN GRAFT ARM SURGERY Right Fx repair CARDIAC CATHETERIZATION 06/21/2024 CATARACT EXTRACTION Bilateral Medical History Medical History Date Comments Hx Other Medical DM II, obesity, afib, HTN, [facility] MVR Aortic stenosis Hyperlipidemia Hypertension Diabetes mellitus (HCC) Atrial fibrillation (HCC) Type 2 diabetes mellitus Urinary tract infection Chronic anticoagulation GERD (gastroesophageal [...] on file Legal Sex Female 3:14 AM CARPENTRY SPECIALIST Gender Identity Not on file Sexual Orientation Not on file Obstetrics History Last Filed Vital Signs Vital Sign Reading Time Taken Comments Blood Pressure 108/78 12/29/2024 2:01 PM CDT Pulse 68 12/29/2024 2:01 PM CDT Temperature 36.3 C (97.3 F) 08/20/2024 11:51 AM CARPENTRY SPECIALIST Respiratory Rate 18 08/20/2024 11:51 AM CARPENTRY SPECIALIST Oxygen Saturation 97% 12/29/2024 2:01 PM CDT [...] 11/03/2013 Hemoglobin A1C 02/03/2025 08/06/2024 Influenza Vaccine (#1) 2025 8, 09/19/2017, 07/31/2015, Additional history exists Fall Risk Assessment 08/20/2025 08/20/2024 eGFR 08/20/2025 08/20/2024, 12/01/2024, 08/06/2024, Additional history exists Lipid Panel 12/29/2025 12/29/2024, 10/16, 09/01/2023, Additional history exists Osteoporosis Screening-Bone Density Scan 09/23/2026 09/23/2024 Breast Cancer Screening-Mammogram Discontinued 024, 05/21/2024 Medical Devices Implanted Type Area Radiophone Operator Device Identifier Shelf Expiration Date Model / Serial / Lot Hernandez Vascular System Closure Repair Femoral Artery Suture Mediated Perclose Prostyle 95343-65 - [id number] Implanted:Qty: 1 on 08/19/2024 by Suhail Haro MD at [facility] 05/15/2026 [id number] / / [id number] [employer] Vascular System Closure Repair Femoral Artery Suture Mediated Perclose Prostyle 11646-04 - [id number] Implanted:Qty: 1 on 08/19/2024 by Suhail Haro MD at [facility] 05/15/2026 [id number] / / [id number] [employer] Valve Aortic Trnscath Suzanna 3 Ultra Resilia 26mm [id number] - [id number] - [id number] Implanted:Qty: 1 on 08/19/2024 by Suhail Haro MD at [facility] [employer] 12/10/2026 [id number] / [id number] / [employer] Device Closure Vascade Od5 Fr Femoral Artery [id number] - [id number] Implanted:Qty: 1 on 08/19/2024 by Suhail Haro MD at [facility] [employer] 04/12/2026 [id number] / / [id number] Procedures Procedure Name Priority Date/Time Associated Diagnosis Comments PROTIME-INR Routine 05/31/2025 PROTIME-INR Routine 05/25/2025 SCAN - LABS 05/18/2025 PROTIME-INR Routine 05/18/2025 SCAN - LABS 05/17/2025 PROTIME-INR Routine 05/17/2025 SCAN - LABS 05/10/2025 PROTIME-INR Routine 05/10/2025 SCAN - LABS 05/03/2025 PROTIME-INR Routine 05/03/2025 SCAN - LABS 04/26/2025 PROTIME-INR Routine 04/26/2025 SCAN - LABS 04/19/2025 PROTIME-INR Routine 04/19/2025 SCAN - LABS 04/12/2025 PROTIME-INR Routine 04/12/2025 PROTIME-INR Routine 04/08/2025 9:29 PM CDT SCAN - LABS 03/29/2025 PROTIME-INR Routine 03/29/2025 PROTIME-INR Routine 03/25/2025 PROTIME-INR Routine 03/21/2025 PROTIME-INR Routine 03/09/2025 TRANSTHORACIC ECHO (TTE) COMPLETE W DOPPLER/CF WO CONTRAST Routine 03/02/2025 2:03 PM CDT S/P TAVR (transcatheter aortic valve replacement) History of mitral valve replacement with mechanical valve POCT LIPID PANEL Routine 12/29/2024 1:55 PM CDT Lipid screening EGFR Routine 08/20/2024 2:49 AM CARPENTRY SPECIALIST HEMOGLOBIN A1C Routine 08/06/2024 9:51 AM CARPENTRY SPECIALIST Pre-operative exam Type 2 diabetes mellitus with hyperlipidemia (HCC) from Last 3 Months or Most Recently Relevant to Health Maintenance Results * (ABNORMAL) Protime-INR (05/31/2025) INR 1.50(A) 0.90 - 1.10 EXTERNAL LAB Blood Result [facility] Provider MD LAB BLOOD ORDERABLES Nely l Result Performing Organization Address [facility]/ZIP Co de Phone Number EXTERNAL LAB * (ABNORMAL) Protime-INR (05/25/2025) INR 3.50(A) 0.90 - 1.10 EXTERNAL LAB Blood Result [facility] Provider MD LAB BLOOD ORDERABLES Nely l Result EXTERNAL LAB * SCAN - LABS (05/18/2025) Provider Scanning Final Result * (ABNORMAL) Protime-INR (05/18/2025) INR 2.40(A) 0.90 - 1.10 EXTERNAL LAB Blood Result [facility] Provider MD LAB BLOOD ORDERABLES Nely l Result EXTERNAL LAB * SCAN - LABS (05/17/2025) us Provider Scanning Final Result * (ABNORMAL) Protime-INR (05/17/2025) INR 1.80(A) 0.90 - 1.10 EXTERNAL LAB Blood Historical Provider MD LAB BLOOD ORDERABLES Nely l Result EXTERNAL LAB * SCAN - LABS (05/10/2025) us Provider Scanning Final Result * (ABNORMAL) Protime-INR (05/10/2025) INR 3.80(A) 0.90 - 1.10 EXTERNAL LAB Blood Result [facility] Historical Provider MD LAB BLOOD ORDERABLES Nely l Result Performing Organization Address City/[facility]/ZIP Co de Phone Number EXTERNAL LAB * SCAN - LABS (05/03/2025) us Provider Scanning Final Result * (ABNORMAL) Protime-INR (05/03/2025) INR 2.90(A) 0.90 - 1.10 EXTERNAL LAB Blood Result [facility] Provider MD LAB BLOOD ORDERABLES Nely l Result Performing Organization Address [facility] Co de Phone Number EXTERNAL LAB * SCAN - LABS (04/26/2025) us Provider Scanning Final Result * (ABNORMAL) Protime-INR (04/26/2025) INR 3.30(A) 0.90 - 1.10 EXTERNAL LAB Blood Result [facility] Historical Provider MD LAB BLOOD ORDERABLES Nely l Result Performing Organization Address City/[facility]/ZIP Co de Phone Number EXTERNAL LAB * SCAN - LABS (04/19/2025) us Provider Scanning Final Result * (ABNORMAL) Protime-INR (04/19/2025) INR 3.10(A) 0.90 - 1.10 EXTERNAL LAB Blood Result [facility] Historical Provider MD LAB BLOOD ORDERABLES Nely l Result Performing Organization Address [facility] Co de Phone Number EXTERNAL LAB * SCAN - LABS (04/12/2025) Provider Scanning Final Result * (ABNORMAL) Protime-INR (04/12/2025) INR 3.50(A) 0.90 - 1.10 EXTERNAL LAB Blood Result [facility] Provider MD LAB BLOOD ORDERABLES Nely l Result Performing Organization Address [facility] de Phone Number EXTERNAL LAB * (ABNORMAL) Protime-INR (04/08/2025 9:29 PM CDT) INR 3.80(A) 0.90 - 1.10 EXTERNAL LAB Blood Result [facility] Provider MD LAB BLOOD ORDERABLES Edit ed Result - Final Performing Organization Address [facility] de Phone Number EXTERNAL LAB * SCAN - LABS (03/29/2025) Result [facility] Provider Scanning Final Result * (ABNORMAL) Protime-INR (03/29/2025) INR 2.60(A) 0.90 - 1.10 EXTERNAL LAB Blood Result [facility] Historical Provider MD LAB BLOOD ORDERABLES Nely l Result Performing Organization Address [facility] Co de Phone Number EXTERNAL LAB * (ABNORMAL) Protime-INR (03/25/2025) INR 2.50(A) 0.90 - 1.10 EXTERNAL LAB Blood Historical Provider MD LAB BLOOD ORDERABLES Edit ed Result - Final EXTERNAL LAB * (ABNORMAL) Protime-INR (03/21/2025) INR 2.00(A) 0.90 - 1.10 EXTERNAL LAB Blood Historical Provider MD LAB BLOOD ORDERABLES Edit ed Result - Final Performing Organization Address [facility]/ZIP Co de Phone Number EXTERNAL LAB * (ABNORMAL) Protime-INR (03/09/2025) INR 3.10(A) 0.90 - 1.10 EXTERNAL LAB Blood [facility] Provider MD LAB BLOOD ORDERABLES Nely l Result Performing Organization Address [facility] Co de Phone Number EXTERNAL LAB * TRANSTHORACIC ECHO (TTE) COMPLETE W DOPPLER/CF WO CONTRAST (03/02/2025 2:03 PM CDT) Estimated EF 55 % CONS SCIMAGE EF Mod BP 63 % CONS SCIMAGE Anatomical Region Laterality Modality Ultrasound 03/02/2025 12:2 3 PM CDT Narrative 03/02/2025 10:31 PM CDT [facility] Medical [facility] Cardiology [address] [facility] [address], [place] [address] [address] [facility] [address], [place] [address] P:[phone] P:[phone] Echocardiographic Report Patient Name: LILA ELI A : 1950 Study Date: 03/02/2025 12:23:33 PM Gender: F Tech: DLS Location: [place] Ref Provider: SUHAIL HARO Height(Cm): 163 BSA: 1.8 [...] [ 16 - 34 ] LVOT Peak Ajiro 0.91 m/s [ 0.70 - 1.10 ] [...] valve. Electronically Signed By: Suhail Haro MD, [facility] 03/02/2025 10:30:32 PM CDT Procedure Note Suhail Haro MD - 03/02/2025 [facility] Medical [facility] Cardiology [address] [facility] [address], [place] [address] [address] [facility] [address], [place] [address] P:[phone] P:[phone] Echocardiographic Report Patient Name: LILA ELI A : 1950 Study Date: 03/02/2025 12:23:33 PM Gender: F Tech: [facility] [address] Location: [facility] Provider: SUHAIL HARO Height(Cm): 163 BSA: [...] tricuspidvalve. Electronically Signed By: Suhail Haro MD, [facility] 03/02/2025 10:30:32 PM CDT Suhail Haro MD CV ECHO PROCEDURES Final Result * POCT lipid panel (12/29/2024 1:55 PM CDT) Cholesterol, POC 177 mg/dL HDL, POC 46 mg/dL Triglycerides, POC 220 mg/dL LDL Cholesterol POC 87 mg/dL Chol/HDL Ratio, POC 1.9 Non-HDL Cholesterol, POC 131 mg/dL Cholesterol Total, POC 177 mg/dL Capillary blood 12/29/2024 1 :55 PM CDT Suhail Haro MD POINT OF CARE TEST ORDERABLES Fi nal Result * eGFR (08/20/2024 2:49 AM CARPENTRY SPECIALIST) eGFR 90 >=60 mL/min/1. 73 m2 Comment: [...] last reviewed 2021. Blood 08/20/2024 2:49 AM CARPENTRY SPECIALIST 08/20/2024 3:08 AM CARPENTRY SPECIALIST Suhail Haro MD LAB BLOOD ORDERABLES Final Resul t Performing Organization Address [facility] de Phone Number NONI [address] [address] Department [place] [address] * (ABNORMAL) Hemoglobin A1c (08/06/2024 9:51 AM CARPENTRY SPECIALIST) Hgb A1C 7.2(H) 4.0 - 5.6 % Estimated Average Glucose 160 mg/dL NONI SCHAFER Comment: The ADA recommends reporting an estimated Average Glucose (eAG) with all Hemoglobin A1c results using the equation derived from a study of 507 normal and diabetic adults. Minority populations were underrepresented and children were not included. (Diabetes Care 31:1922-3165, 2008). The eAG is not equivalent to a fasting glucose. Blood 08/06/2024 9:51 AM CARPENTRY SPECIALIST 08/06/2024 9:58 AM CARPENTRY SPECIALIST Suhail Haro MD LAB BLOOD ORDERABLES Final Resul t Performing Organization Address [facility] de Phone Number NONI [place] [address] [address] [employer] [facility] [employer] [place] [address] from Last 3 Months or Most Recently Relevant to Health Maintenance Insurance [facility] MEDICARE ADVANTAGE IDPA [facility] MEDICARE ADVANTAGE IDPA [facility] MEDICARE ADVANTAGE IDPA MEDICARE RESEARCH Care Teams Ladderman Relationship Specialty Start Date End Date Amado Wray MD PCP - General Family Practice 03/08/22
--- OUTSIDE RECORDS SUMMARY | 2025-06-02 01:15 | XMS_ITS | Encounter Summary ---
Author Organization [facility] Medical Group Address [address] [facility] [address] [place] [address] Care Team Providers Care Jordan Man Name Role Phone Tae Sharma MD Primary Care Provider [phone] Becca Ngo MD Primary Care Provider Amado Wray MD Primary Care Provider Encounter Details Date Type Department Care Team ([facility] Contact Info) Description 10/01/2016 Orders Only [facility] ProviderSid MD [address] [place] [address] Social History Tobacco Use Types Packs/Day Years Used Date Smoking Tobacco: Never Alcohol Use Standard Drinks/Week Comments No 0 (1 standard drink = 0.6 oz pur e alcohol) Comments Unknown Sex and Gender Information Value Date Recorded Sex Assigned at Not on file Legal Sex Female 3:14 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
--- OUTSIDE RECORDS SUMMARY | 2025-06-02 01:15 | XMS_ITS | Encounter Summary ---
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 Gender Identity Not on file Sexual Orientation Not on file documented as of this encounter Plan of Treatment Not on file documented as of this encounter Procedures Procedure Name Priority Date/Time Associated Diagnosis Comments SCAN - LABS 12/21/2024 documented in this encounter Results * SCAN - LABS (12/21/2024) us Provider Scanning Final Result documented in this encounter Visit Diagnoses Not on filedocumented in this encounter Care Teams Director Global Intelligence Relationship Specialty Start Date End Date Amado Wray MD PCP - General Family Practice 03/08/22 documented as of this encounter
--- OUTSIDE RECORDS SUMMARY | 2025-06-02 01:15 | XMS_ITS | Encounter Summary ---
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
--- OUTSIDE RECORDS SUMMARY | 2025-06-02 01:15 | XMS_ITS | Encounter Summary ---
Author Organization [facility] Healthcare Address [address] [place] [address] Care Team Providers Care Record Retrieval Specialist Name Role Phone Amado Wray MD Primary Care Provider Encounter Details Date Type Department Care Team (Late st Contact Info) Description 10/21/2023 Orders Only [facility] [place] Information Management [address] [place] [address] Scanning, Provider Social History Tobacco Use Types Packs/Day Years Used Date Smoking Tobacco: Never Smokeless Tobacco: Never Alcohol Use Standard Drinks/Week Comments No 0 (1 standard drink = 0.6 oz pur e alcohol) Personal Safety Answer Date Recorded Getting School Help Needed Not on file 08/25 Comments Unknown Sex and Gender Information Value Date Recorded Sex Assigned at Not on file 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 Gender Identity Not on file Sexual Orientation Not on file documented as of this encounter Plan of Treatment Not on file documented as of this encounter Procedures Procedure Name Priority Date/Time Associated Diagnosis Comments SCAN - LABS 10/21/2023 documented in this encounter Results * SCAN - LABS (10/21/2023) us Provider Scanning Final Result documented in this encounter Visit Diagnoses Not on filedocumented in this encounter Care Teams Record Retrieval Specialist Relationship Specialty Start Date End Date Amado Wray MD PCP - General Family Practice 03/08/22 documented as of this encounter
--- OUTSIDE RECORDS SUMMARY | 2025-06-02 01:15 | XMS_ITS | Encounter Summary ---
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
--- OUTSIDE RECORDS SUMMARY | 2025-06-02 01:15 | XMS_ITS | Encounter Summary ---
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
--- OUTSIDE RECORDS SUMMARY | 2025-06-02 01:15 | XMS_ITS | Encounter Summary ---
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
--- OUTSIDE RECORDS SUMMARY | 2025-06-02 01:15 | XMS_ITS | Encounter Summary ---
Author Organization [facility] Healthcare Address [address] [place] [address] Care Team Providers Care Aluminum Boat Inspector Name Role Phone Amado Wray MD Primary Care Provider Encounter Details Date Type Department Care Team ([facility] st Contact Info) Description 05/31/2025 Telephone [facility] Medical Group Cardiology [address] [place] [address] Suhail Fonseca MD [address] [facility] C [place] [address] [facility] C, [place] [address] [place], [place] [id number] Social History Tobacco Use Types Packs/Day Years [...] on file 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 * Telephone Encounter - Becca So - 05/31/2025 8:17 AM CDT Patient states that her INR is 1.5. Please advise. Thank you. Contact : [phone] documented in this encounter Plan of Treatment Not on file documented as of this encounter Visit Diagnoses Not on filedocumented in this encounter Care Teams Aluminum Boat Inspector Relationship Specialty Start Date End Date Amado Wray MD PCP - General Family Practice 03/08/22 documented as of this encounter
--- OUTSIDE RECORDS SUMMARY | 2025-06-02 01:15 | XMS_ITS | Encounter Summary ---
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
--- OUTSIDE RECORDS SUMMARY | 2025-06-02 01:15 | XMS_ITS | Encounter Summary ---
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
--- OUTSIDE RECORDS SUMMARY | 2025-06-02 01:15 | XMS_ITS | Encounter Summary ---
Author Organization [facility] Healthcare Address [address] [place] [address] Care Team Providers Care Assistant Plant Manager Name Role Phone Amado Wray MD Primary Care Provider Encounter Details Date Type Department Care Team ([facility] st Contact Info) Description 05/25/2025 Telephone [facility] Medical Group Cardiology [address] [place] [address] Suhail Fonseca MD [address] [facility] C [place] [address] [facility] C, [place] [place], [place] [id number] Social History Tobacco Use Types Packs/Day Years [...] on file 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 * Telephone Encounter - Cecile Shin - 05/25/2025 12:40 PM CDT Pt calling to report INR today is 3.5 Contact: documented in this encounter Plan of Treatment Not on file documented as of this encounter Visit Diagnoses Not on filedocumented in this encounter Care Teams Assistant Plant Manager Relationship Specialty Start Date End Date Amado Wray MD PCP - General Family Practice 03/08/22 documented as of this encounter
--- OUTSIDE RECORDS SUMMARY | 2025-06-02 01:15 | XMS_ITS | Encounter Summary ---
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
--- OUTSIDE RECORDS SUMMARY | 2025-06-02 01:15 | XMS_ITS | Encounter Summary ---
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
--- OUTSIDE RECORDS SUMMARY | 2025-06-02 01:15 | XMS_ITS | Encounter Summary ---
Author Organization [facility] Healthcare Address [address] [place] [address] Care Team Providers Care Welder Gas Tungsten Arc Name Role Phone Amado Wray MD Primary Care Provider Encounter Details Date Type Department Care Team ([facility] st Contact Info) Description 05/10/2025 Telephone [facility] Medical Group Cardiology [address] [place] [address] Suhail Fonseca MD 1225 [facility] C [place] [address] [facility] C, [address] [place], [place] [id number] Social History Tobacco Use Types Packs/Day Years [...] on file 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 * Telephone Encounter - Cecile Shin - 05/10/2025 8:17 AM CDT Pt called to report INR result today is 3.8 Contact: documented in this encounter Plan of Treatment Not on file documented as of this encounter Visit Diagnoses Not on filedocumented in this encounter Care Teams Welder Gas Tungsten Arc Relationship Specialty Start Date End Date Amado Wray MD PCP - General Family Practice 03/08/22 documented as of this encounter
--- OUTSIDE RECORDS SUMMARY | 2025-06-02 01:15 | XMS_ITS | Encounter Summary ---
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 Never 08/06/2024 9:19 AM Joan Harris RN Q2: How many drinks containing alcohol do you have on a typical day when you are drinking? Patient does not drink 08/06/2024 9:19 AM Joan Harris RN Q3: How often do you have six or more drinks on one occasion? Never 08/06/2024 9:19 AM Joan Harris RN documented as of this encounter Plan of Treatment Not on file documented as of this encounter Procedures Procedure Name Priority Date/Time Associated Diagnosis Comments SCAN - LABS 08/03/2024 documented in this encounter Results * SCAN - LABS (08/03/2024) us Provider Scanning Edited Result - Final documented in this encounter Visit Diagnoses Not on filedocumented in this encounter Care Teams Zoology Professor Relationship Specialty Start Date End Date Amado Wray MD PCP - General Family Practice 03/08/22 documented as of this encounter
--- OUTSIDE RECORDS SUMMARY | 2025-06-02 01:15 | XMS_ITS | Encounter Summary ---
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
--- OUTSIDE RECORDS SUMMARY | 2025-06-02 01:15 | XMS_ITS | Encounter Summary ---
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 Gender Identity Not on file Sexual Orientation Not on file documented as of this encounter Plan of Treatment Not on file documented as of this encounter Procedures Procedure Name Priority Date/Time Associated Diagnosis Comments SCAN - LABS 05/18/2024 documented in this encounter Results * SCAN - LABS (05/18/2024) us Provider Scanning Final Result documented in this encounter Visit Diagnoses Not on filedocumented in this encounter Care Teams Economist Research Assistant Relationship Specialty Start Date End Date Amado Wray MD PCP - General Family Practice 03/08/22 documented as of this encounter
--- OUTSIDE RECORDS SUMMARY | 2025-06-02 01:15 | XMS_ITS | Clinical Summary ---
Author Organization [facility] Address [address] [place] [address] Care Team Providers Care Professor Of Journalism Name Role Phone Amado Wray MD Primary Care Provider Jose De Jesus Mcgee MD Unavailable [phone] Encounters Date Type Department Care Team Description 05/26/2025 9:00 AM CDT - 05/26/2025 11:59 PM CDT Hospital Encounter [facility] [address] [place] [address] Jose De Jesus Mcgee MD Discharge Disposition: Home or Self Care (Routine Discharge) 05/26/2025 Orders Only [facility] [address] [place] [address] Jose De Jesus Mcgee MD 05/26/2025 Travel 03/14/2025 12:48 PM CDT - 03/14/2025 11:59 PM CDT Hospital Encounter [facility] [address] [place] [address] Jose De Jesus Mcgee MD Discharge Disposition: Home or Self Care (Routine Discharge) 03/14/2025 12:43 PM CDT - 03/14/2025 12:47 PM CDT Hospital Encounter [facility] [address] [place] [address] Kash Dumont FNP Discharge Disposition: Home or Self Care (Routine Discharge) 03/14/2025 Orders Only [facility] [address] [place] [address] Kash Dumont FNP 03/14/[address] [facility] [address] [place] [address] Jose De Jesus Mcgee MD 03/14/2025 Travel [...] Retinopathy Eye Exam 1966 Hepatitis C 1968 Annual Medicare Wellness Visit 2013 Zoster Vaccines (2 of 3) 09/24/2016 07/30/2016 RSV Immunization or 60+ Years (1 - 1-dose 75+ series) 2023 DTaP, Tdap and Td Vaccines (2 - Td or Tdap) 03/01/2025 03/01/2015 COVID-19 Vaccine ( season) 2025 08/22/2021, 01/02/2021, 12/11/2020 Hemoglobin A1C 09/13/2025 03/14/2025, 07/17, 09/01/2023 Kidney Health Evaluation 03/14/2026 03/14/2025 Lipid Panel 03/14/2026 03/14/2025, 12/14, 10/30/2023, Additional history exists Pneumococcal Vaccine: 50+ Years Completed 07/17/2018, 03/01/2015, 11/03/2013 Dexa Scan (General) Completed 09/23/2024 Meningococcal B [...] Associated Diagnosis Comments PARTIAL THROMBOPLASTIN TIME,PTT Routine 05/26/2025 9:09 AM CDT Diabetes ([facility]) Chronic anticoagulation PROTHROMBIN TIME, VENOUS Routine 05/26/2025 9:09 AM CDT Diabetes (CMS/HCC HHS/HCC) Chronic anticoagulation BASIC METABOLIC PANEL Routine 05/26/2025 9:09 AM CDT Diabetes (CMS/HCC HHS/HCC) Chronic anticoagulation ALBUMIN URINE RANDOM W/CREATININE Routine 03/14/2025 1:47 PM CDT Diabetes mellitus (CMS/HCC HHS/HCC) Vitamin D deficiency Hyperlipemia Essential hypertension, malignant PARTIAL THROMBOPLASTIN TIME,PTT Routine 03/14/2025 12:53 PM CDT Chronic anticoagulation HEMOGLOBIN, GLYCOSYLATED Routine 03/14/2025 12:53 PM CDT Diabetes mellitus (CMS/HCC HHS/HCC) Vitamin D deficiency Hyperlipemia Essential hypertension, malignant VITAMIN D, 25 OH Routine 03/14/2025 12:5 3 PM CDT Diabetes mellitus (CMS/HCC HHS/HCC) Vitamin [...] BONE DENSITY/DEXA Routine 09/23/2024 11: 50 AM LAUNDRY WASHER Asymptomatic menopausal state from Last 3 Months or Most Recently Relevant to Health Maintenance Results * (ABNORMAL) PARTIAL THROMBOPLASTIN TIME,PTT (05/26/2025 9:09 AM CDT) Only the most recent of2 resultswithin the time period is included. PTT 42.5(H) 25.1 - 36.5 SEC 05/26/2025 9:55 AM CDT [facility] 05/26/2025 9:09 AM CDT us Jose De Jesus Mcgee MD LABORATORY Final Result Performing Organization Address City/[facility]/ZIP Co de Phone Number [facility] [address] [place] [address], [place] [phone] * (ABNORMAL) PROTIME/INR, VENOUS (05/26/2025 9:09 AM CDT) Pathologist [facility] PROTIME 32.0(H) 9.1 - 12.4 SEC 05/26/2025 9:55 AM CDT [facility] INR 2.7 05/26/2025 9:55 AM CDT [facility] Comment: Recommend INR ranges for Oral Anticoagulant Therapy: Mechanical Cardiac Values 2.5-3.5 All others indication 2.0-3.0 05/26/2025 9:09 AM CDT us Jose De Jesus Mcgee MD LABORATORY Final Result [facility] [address] [place] [address], [place] [phone] * (ABNORMAL) BASIC METABOLIC PANEL (05/26/2025 9:09 AM CDT) GLUCOSE 117(H) 70 - 99 MG/DL 05/26/2025 10:01 AM CDT [facility] BUN 13 7 - 18 MG/DL 05/26/2025 10:01 AM CDT [facility] CREATININE S/P/B 0.71 0.55 - 1.02 MG/DL 05/26/2025 10:01 AM [facility] SODIUM S/P/B 140 136 - 145 MMOL/L 05/26/2025 10:01 AM [facility] POTASSIUM S/P/B 4.8 3.5 - 5.1 MMOL/L 05/26/2025 10:01 AM [facility] CHLORIDE S/P/B 106 100 - 108 MMOL/L 05/26/2025 10:01 AM [facility] CO2 27.4 21 - 32 MMOL/L 05/26/2025 10:01 AM [facility] CALCIUM S/P/B 9.1 8.5 - 10.1 MG/DL 05/26/2025 10:01 AM [facility] ANION GAP 6.6 5 - 15 MMOL/L 05/26/2025 10:01 AM [facility] BUN CREATININE RATIO 18.3 6 - 26 05/26/2025 10:01 AM [facility] GFR ESTIMATE 88(L) >90 ML/MIN/1.7 3 M2 05/26/2025 10:01 AM [facility] Comment: NOTE: eGFR is not calculated for patients <18 years of age. This is an estimated GFR calculation using the new CKD EPI creatinine equation without race and so does not require a correction factor for race. This estimated GFR should not be used for calculating drug doses. 05/26/2025 9:09 AM CDT Jose De Jesus Mcgee MD LABORATORY Final Result [facility] [address] [place] [address], [place] [phone] * MICROALBUMIN CREATININE RATIO (MICROALBUMIN/ALBUMIN) (03/14/2025 1:47 PM CDT) CREATININE (U) 76.5 28 - 217 MG/DL 03/14/2025 2:18 PM CDT [facility] MICROALBUMIN (U) 1.6 <2.0 mg/dL 03/14/20 2:18 PM CDT [facility] ALBUMIN/CREAT RATIO 20.9 <30.0 MG/G 03/14/2025 2:18 PM CDT [facility] URINE SPECIMEN / Unknown 03/14/2025 1:47 PM CDT [facility] URINE ORDERABLES Final Resul t Performing Organization Address City/[facility]/ZIP Co de Phone Number [facility] [address] [place] [address], [place] [phone] * TSH W/REFLEX (03/14/2025 12:53 PM CDT) TSH 1.060 0.358 - 3.74 uIU/ML 03/14/2025 1:28 PM CDT [facility] Comment: HIGH DOSES OF BIOTIN MAY INTERFERE WITH THIS TEST RESULT. CORRELATION TO CLINICAL HISTORY AND PRESENTATION RECOMMENDED. FREE T4 NOT INDICATED 03/14/2025 12:5 3 PM CDT [facility] LABORATORY Final Result [facility] [address] [place] [address], [place] [phone] * (ABNORMAL) HEMOGLOBIN, GLYCOSYLATED (03/14/2025 12:53 PM CDT) HGB A1C 8.2(H) <5.7 % 03/14/2025 2:27 PM CDT [facility] Comment: INCREASED RISK OF DIABETES <5.7% NON-DIABETES 5.7-6.4% INCREASED RISK FOR FUTURE DIABETES > OR = 6.5 CONSISTENT WITH DIABETES STANDARDS OF MEDICAL CARE IN DIABETES-2010 DIABETES CARE, 33(SUPP 1): S1-S61,2009 ESTIMATED AVG GLUCOSE 189 mg/dL 03/14/2025 2:27 PM CDT [facility] 03/14/2025 12:5 3 PM CDT us Kash Dumont [facility] LABORATORY Final Result [facility] [address] [facility] [place] [address], [place] [phone] * (ABNORMAL) COMPREHENSIVE METABOLIC PANEL (03/14/2025 12:53 PM CDT) [facility] GLUCOSE 243(H) 70 - 99 MG/DL 03/14/2025 1:28 PM CDT [facility] BUN 17 7 - 18 MG/DL 03/14/2025 1:28 PM CDT [facility] CREATININE S/P/B 0.98 0.55 - 1.02 MG/DL 03/14/2025 1:28 PM CDT [facility] SODIUM S/P/B 139 136 - 145 MMOL/L 03/14/2025 1:28 PM CDT [facility] POTASSIUM S/P/B 4.2 3.5 - 5.1 MMOL/L 03/14/2025 1:28 PM CDT [facility] CHLORIDE S/P/B 104 100 - 108 MMOL/L 03/14/2025 1:28 PM CDT [facility] CO2 25.7 21 - 32 MMOL/L 03/14/2025 1:28 PM CDT [facility] CALCIUM S/P/B 9.3 8.5 - 10.1 MG/DL 03/14/2025 1:28 PM [facility] BILIRUBIN TOTAL S/P/B 0.8 0.2 - 1.2 MG/DL 03/14/2025 1:28 PM [facility] TOTAL PROTEIN S/P/B 7.7 6.4 - 8.2 G/DL 03/14/2025 1:28 PM [facility] ALBUMIN S/P/B 4.2 3.4 - 5.0 G/DL 03/14/2025 1:28 PM [facility] AST 18 15 - 37 U/L 03/14/2025 1:28 PM [facility] ALT 24 14 - 55 U/L 03/14/2025 1:28 PM [facility] ALKALINE PHOSPHATASE S/P/B 42(L) 50 - 136 U/L 03/14/2025 1:28 PM [facility] ANION GAP 9.3 5 - 15 MMOL/L 03/14/2025 1:28 PM [facility] BUN CREATININE RATIO 17.3 6 - 26 03/14/2025 1:28 PM [facility] A/G RATIO 1.2 1.0 - 2.0 RATIO 03/14/2025 1:28 PM [facility] GFR ESTIMATE 60(L) >90 ML/MIN/1.7 3 M2 03/14/2025 1:28 PM [facility] Comment: NOTE: eGFR is not calculated for patients <18 years of age. This is an estimated GFR calculation using the new CKD EPI creatinine equation without race and so does not require a correction factor for race. This estimated GFR should not be used for calculating drug doses. 03/14/2025 12:5 3 PM CDT us Kash Dumont POLEYARD SUPERVISOR LABORATORY Final Result [facility] [address] [place] [address], [place] [phone] * (ABNORMAL) LIPID PANEL (03/14/2025 12:53 PM CDT) CHOLESTEROL 192 <200.0 MG/DL 03/14/2025 1:28 PM CDT [facility] TRIGLYCERIDES 261(H) <150 MG/DL 03/14/2025 1:28 PM CDT [facility] HDL 48 >40.0 MG/DL 03/14/2025 1:28 PM CDT [facility] LDL (CALCULATED) 92 <100 MG/DL 03/14/2025 1:28 PM T [facility] Comment:CALCULATED USING THE FRIEDEWALD EQUATION NON HDL CHOLESTEROL 144(H) <130 MG/DL 03/14/2025 1:28 PM CDT [facility] CHOL/HDL RATIO 4.0 0.0 - 4.5 03/14/2025 1:28 PM T [facility] VLDL CALCULATION 52 5 - 55 MG/DL 03/14/2025 1:28 PM T [facility] LIPID INTERPRETATION 03/14/2025 1:28 PM T [facility] Comment: [facility] CONCENSUS REPORT RECOMMENDATIONS: ADULT CHILD LOW RISK: CHOLESTEROL <200 <170 TRIGLYCERIDE <150 --- HDL >=60 --- LDL <100 <110 BORDERLINE: CHOLESTEROL 200-239 170-199 TRIGLYCERIDE 150-199 --- HDL 40-59 --- LDL 100-159 110-129 HIGH RISK: CHOLESTEROL >=240 >=200 TRIGLYCERIDE >=200 --- HDL <40 --- LDL >=160 >=130 03/14/2025 12:5 3 PM CDT us LisetteKrysatl Dumont [facility] LABORATORY Final Result [facility] [address] [place] [address], [place] [phone] * (ABNORMAL) CBC W/DIFF AUTOMATED (03/14/2025 12:53 PM CDT) WBC 7.09 4.4 - 11.0 x10'3/uL 03/14/2025 1:03 PM CDT [facility] RBC 3.95(L) 4.50 - 5.10 x10'6/uL 03/14/2025 1:03 PM CDT [facility] HGB 12.7 12.3 - 15.3 G/DL 03/14/2025 1:03 PM CDT [facility] HCT 38.7 35.9 - 44.6 % 03/14/2025 1:03 PM CDT [facility] MCV 98.0(H) 80.0 - 96.0 FL 03/14/2025 1:03 PM CDT [facility] MCH 32.2(H) 25.3 - 30.9 PG 03/14/2025 1:03 PM CDT [facility] MCHC 32.8 31.0 - 34.1 G/DL 03/14/2025 1:03 PM CDT [facility] RDW 12.8 12.4 - 15.1 % 03/14/2025 1:03 PM CDT [facility] PLT 174 151 - 353 x10'3/uL 03/14/2025 1:03 PM CDT [facility] MPV 10.2 9.6 - 12.0 FL 03/14/2025 1:03 PM CDT [facility] RBC MORPHOLOGY NORMAL 03/14/2025 1:03 PM CDT [facility] PLT MORPH. NORMAL 03/14/2025 1:03 PM CDT [facility] WBC MORPHOLOGY NORMAL 03/14/2025 1:03 PM CDT [facility] LYMPHOCYTES % 23.7 15.8 - 45.0 % 03/14/2025 1:03 PM CDT [facility] NEUTROPHILS % 65.5 42.1 - 71.9 % 03/14/2025 1:03 PM CDT [facility] MONOCYTES % 6.2 5.7 - 12.5 % 03/14/2025 1:03 PM CDT [facility] EOSINOPHILS 3.5 0.0 - 5.6 % 03/14/2025 1:03 PM CDT [facility] BASOPHILS 1.0 0.0 - 1.3 % 03/14/2025 1:03 PM CDT [facility] ABS. NEUTROPHILS 4.64 1.40 - 6.00 x10'3/uL 03/14/2025 1:03 PM CDT [facility] IMMATURE GRANS % 0.1 0.0 - 0.5 % 03/14/2025 1:03 PM CDT [facility] ABS. LYMPHOCYTES 1.68 0.80 - 4.70 x10'3/uL 03/14/2025 1:03 PM CDT [facility] 03/14/2025 12:5 3 PM CDT us Kash AMAYAP LABORATORY Final Result [facility] [address] [place] [address], * VITAMIN D, 25 OH (03/14/2025 12:53 PM CDT) VITAMIN D 25 HYDROXY S/P/B 33 30 - 100 NG/ML 03/14/2025 8:31 PM CDT [facility] Comment: INTERPRETATION DEFICIENT <20 INSUFFICIENT 20-29 SUFFICIENT 30-100 03/14/2025 12:5 3 PM CDT us Kash Dumont POLEYARD SUPERVISOR LABORATORY Final Result [facility] [address] [facility] [place] [address], [place] [phone] * BONE DENSITY/DEXA (09/23/2024 11:50 AM LAUNDRY WASHER) Anatomical Region Laterality Modality Bone Bone Density 09/24/2024 6:29 AM LAUNDRY WASHER Impressions 09/24/2024 6:30 AM LAUNDRY WASHER IMPRESSION: WHO Classification: Normal RECOMMENDATIONS: All patients [...] 09/24/2024 6:29 AM Narrative 09/24/2024 6:30 AM LAUNDRY WASHER [facility] [address] [place] [address] EXAMINATION: BONE DENSITY/DEXA INDICATIONS: Asymptomatic menopausal state [...] Procedure Note Jake Guillen MD - 09/24/2024 [facility] [address] [facility]. 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
--- OUTSIDE RECORDS SUMMARY | 2025-06-02 01:15 | XMS_ITS | Encounter Summary ---
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
--- OUTSIDE RECORDS SUMMARY | 2025-06-02 01:15 | XMS_ITS | Encounter Summary ---
Author Organization [facility] Healthcare Address [address] [place] [address] Care Team Providers Care Cloth Piecer Name Role Phone Amado Wray MD Primary Care Provider Encounter Details Date Type Department Care Team (Late st Contact Info) Description 08/12/2023 Orders Only [facility] Health Information Management [address] [place] [id number] Scanning, Provider Social History Tobacco Use Types Packs/Day Years Used Date Smoking Tobacco: Never Smokeless Tobacco: Never Alcohol Use Standard Drinks/Week Comments No 0 (1 standard drink = 0.6 oz pur e alcohol) Comments Unknown Sex and Gender Information Value Date Recorded Sex Assigned at Not on file 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
--- NOTE | 2025-06-02 06:48 | WPDHPUPDATE1 ---
History and Physical Update Update Date/Time: 06/02/25 06:48 Patient seen and examined in pre-operative holding area. No interval change in medical history or symptoms. Patient recalls previous discussion of benefits and alternatives to procedure. Continues to desire to proceed with right cubital tunnel release. Reviewed procedure, post-op expectations and risks including but not limited to bleeding, infection, injury to tendon/nerve/vessel, decreased hand function, stiffness, RSD, no change or worsening of symptoms. I discussed the possible use of assistants and their participation in the case. Patient stated understanding and signed the consent form wishing to proceed.
--- NOTE | 2025-06-02 06:48 | W.PM.PROC2 ---
Procedure Note - Detailed Date of Procedure 06/02/25 Pre-op Diagnosis right cubital tunnel syndrome Post-op Diagnosis Same Procedure Performed right CuTR Surgeon Jemma Villeda MD Manager Of Applications Development trisha garcía pa-c Anesthesia MAC Description of Procedure INFORMED CONSENT:The patient was seen and examined and marked in the pre-op area.? The patient signed the consent form. PROCEDURE IN DETAIL: The patient taken back to OR on the stretcher in supine position. Time out performed with anesthesia, surgeon and staff agreeing on patient's name site and surgery to be performed SCDs were placed on the lower extremities and inflated A tourniquet was placed on {right} upper extremity and antibiotics given IV After anesthesia administered sedation I injected {8}cc 1%lido with epi and 0.5% marcaine plain at the operative site The?{right upper extremity}?was prepped and draped in sterile fashion the??{right upper extremity} was??exsanguinated with Esmarch bandage and tourniquet inflated to 250mmHg I next proceeded with making a longitudinal incision between two heads for flexor carpi ulnaris at end of {right} cubital tunnel with 15 blade scalpel.? Littler scissors were used to spread down to FCU fascia.? An incision was made in FCU fascia and ulnar nerve identified exiting cubital tunnel.? I proceeded with complete retrograde release of the cubital tunnel including 7cm proximal for the intermuscular septum.? The nerve appeared healthy with visible vaso nervorum.? There was no subluxation on full elbow range of motion. ? I irrigated with normal saline and closure with 4-0 monocryl for dermis and subcuticular. The incision was covered with Dermabond then 4x4s, blu, and a posterior elbow splint for patient safety, security and comfort and secured with toña bandages after the tourniquet was let down noting the hand was warm and well perfused.? Patient awaken from anesthesia and transferred to recovery in stable condition Complications - none EBL- 1cc Disposition - home in stable condition Trisha García PA-C was essential for positioning, retraction, closure and dressing placement [facility] Billing Surgery - Charge Forward: Surgery Billing ([id number] for trisha)
[2025-06-02 09:00] VITALS: BP 147/76; PULSE 65; RESP 16; TEMP 36.5; O2SAT 99
[2025-06-02] MEDS: LACTATED RINGERS 1,000 ML 30 ML IV CONT (09:00)
[2025-06-02 09:27] LABS: INR 1.2; Prothrombin Time 15.2 Seconds (11.1-14.7)
--- NOTE | 2025-06-02 10:06 | WPDANESEPPF ---
Anes - Initial Pre Proc Eval Procedure: Operation Date: 06/02/25 10:15 Proposed Procedures p Right Cubital Tunnel Release - Jemma Villeda MD Date/Time: 06/02/25 10:06 Surgeon: Jemma Villeda MD Pre Op Diagnosis: right cubital tunnel syndrome Patient Data Age: 74 Gender: F Height: 1.6 m Weight: 71 kg Allergies Allergy/AdvReac Type Severity Reaction Status Date / Time codeine Allergy Unknown Unknown Verified 05/19/25 15:03 ibuprofen Allergy Unknown Unknown Verified 05/19/25 15:03 Quinolones Allergy Unknown Unknown Verified 05/19/25 15:03 iron AdvReac Intermediate upset Verified 05/19/25 15:03 stomach diphenhydramine AdvReac Mild Nausea Verified 05/19/25 15:03 Home Medications ?Medication ?Instructions ?Recorded ?Confirmed ?Type lisinopril 20 mg tablet 20 mg PO DAILY 08/03/19 05/19/25 History acetaminophen 500 mg tablet 650 mg PO DAILY 08/10/19 05/19/25 History (Tylenol Extra Strength) diphenhydramine 25 2 tablet PO HS PRN Insomnia 08/10/19 05/19/25 History mg-acetaminophen 500 mg tablet (Tylenol PM Extra Strength) blood-glucose meter (Blood Glucose #1 ea 11/20/20 05/19/25 Rx Monitoring kit) famotidine 20 mg tablet 20 mg PO DAILY PRN gastric reflux 03/04/23 05/19/25 History fenofibrate 160 mg tablet 160 mg PO DAILY #90 tabs 03/04/23 05/19/25 Rx fluticasone propionate 50 1 spray intranasal DAILY PRN 08/27/23 05/19/25 History mcg/actuation nasal allergy symptoms spray,suspension sotalol 80 mg tablet 80 mg PO Q12H 10/25/24 05/19/25 History gabapentin 100 mg capsule 200 mg (2 x 100 mg) PO BID #360 01/05/25 05/19/25 Rx caps alendronate 70 mg tablet See Rx Instructions .Route 01/06/25 05/19/25 Rx .COMPLEX #12 tabs empagliflozin 25 mg tablet 25 mg PO DAILY #90 tabs 01/07/25 05/19/25 Rx (Jardiance) enoxaparin 60 mg/0.6 mL 0.7 mg subcut Q12H 03/09/25 05/19/25 History subcutaneous syringe warfarin 3 mg tablet 3 mg PO DAILY #30 tabs 03/09/25 05/19/25 Rx warfarin 4 mg tablet 4 mg PO DAILY #30 tabs 03/09/25 05/19/25 Rx glimepiride 1 mg tablet 1 mg PO QAM #90 tabs 03/14/25 05/19/25 Rx tramadol 50 mg tablet 50 mg PO Q6H PRN pain #12 tabs 03/16/25 05/19/25 Rx atorvastatin 10 mg tablet 10 mg PO QHS #90 tabs 04/27/25 05/19/25 Rx blood sugar diagnostic (Accu-Chek #100 ea 05/23/25 Rx Guide test strips) Laboratory Tests 06/02/25 06/02/25 08:57 09:02 PT 15.2 H Seconds (11.1-14.7) INR 1.2 POC Capillary Glucose 110 H mg/dl (65-105) Patient hx anesthesia problems: none Family hx anesthesia problems: none Results Review: All pre-operative results and documents have been reviewed as part of the pre-operative evaluation. [facility], [facility] Past Medical History Medical History Screening for breast cancer Restless leg syndrome Environmental allergies Osteopenia Aortic stenosis GERD without esophagitis Anxiety Osteoporosis Started alendronate 11/13/18. Last DEXA scan 2019 per old chart. 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 Low back pain Neuropathy due to type 2 diabetes mellitus Other hyperlipidemia Paroxysmal atrial fibrillation Type 2 diabetes mellitus with other specified complication (~2010) Valvular heart disease Surgical History Surgical History History of left cataract surgery (~07/2023) History of cholecystectomy (~01/2004) History of mitral valve replacement (~2002) Hx of total hysterectomy (~1991) History of surgery on arm (~1957) ORIF - Right forearm pinning H/O skin graft (~1949) Back Family History Family History Sibling Patient's sister is in good health Patient's brother is in good health Family history of malignant neoplasm Family history of type 2 diabetes mellitus Family history of pulmonary embolism Patient's sister is Patient's brother is Acute myocardial infarction Mother Patient's mother is , Onset Age: 96 Grandparent Family history of malignant neoplasm, Onset Age: 59 Social History Social History Social History: 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 Patient never , she has no children. She and her dog live in her own apartment in [place]. She designates her niece, Tawnya Tillman as her surrogate decision maker. Caffeine-soda Smoking status: Never smoker Second hand tobacco smoke exposure: No Alcohol intake: never Substance use: never Substance use type: does not use Lack of Transportation: No Lack of Food: Never True Current Housing: I Have Housing Concerned About Future Housing: No Difficulty Paying Gas/Electric Bills: No Difficulty Paying for Meds: No Currently Unemployed: No Education: High School Diploma/GED Difficulty w/ Childcare or Family Care: No Living arrangements: alone Gender identity (if verbalized by the patient): Female Spiritual care concerns: No Anes - Eval Final PreProcedure Day of Procedure 06/02/25 10:06 Patient weight: overweight Lungs: normal air movement Airway: Mallampati scale class II and special considerations (Upper dentures. ) Neurological: alert and oriented Last oral intake: >/= 8 hours ASA classification: III Emergent: no Anesthetic plan: proceed Anesthesia type and monitoring: general GIVS and standard monitoring Results Review: All pre-operative results and documents have been reviewed as part of the pre-operative evaluation. S/P MVR/TAVR hx of PTCA 09/07 w no cp or sob. Pt has been off warfarin and bridged w lovenox (INR 1.2). Informed Consent: The patient's anesthetic plan and its attendant risks and benefits were discussed with the patient/family/POA. Questions were solicited and answers provided to the satisfaction of the patient/family/POA.
[2025-06-02] MEDS: ceFAZolin 2 GM in SODIUM CHLORIDE 0.9% IV 50 ML 100 ML IVPB (10:44)
[2025-06-02] MEDS: BUPivacaine HCL 0.5% 10 ML AMP 5 ML INFILTRATE (10:46)
[2025-06-02] MEDS: LIDO 1%/EPINEPHRINE 1:100,000 50 ML VIAL INFILTRATE (10:49)
[2025-06-02 11:05] VITALS: BP 147/89; PULSE 59; O2SAT 96
[2025-06-02 11:35] VITALS: BP 147/89; PULSE 59
== END 2025-06-02 12:01 | disposition home or self-care (01) ==
PROVIDERS: Anesthesiology; PCP Family Medicine; Visit Provider Plastic Surgery
PROC: (CPT 64718; principal; 2025-06-02 10:15)
DX: G56.21 Lesion of ulnar nerve, right upper limb (principal); I10 Essential (primary) hypertension; E78.49 Other hyperlipidemia; I48.0 Paroxysmal atrial fibrillation; E11.69 Type 2 diabetes mellitus with other specified complication; G25.81 Restless legs syndrome; K21.9 Gastro-esophageal reflux disease without esophagitis; M81.0 Age-related osteoporosis without current pathological fracture; M85.88 Other specified disorders of bone density and structure, other site; I35.0 Nonrheumatic aortic (valve) stenosis; I38 Endocarditis, valve unspecified; F41.9 Anxiety disorder, unspecified; Z79.01 Long term (current) use of anticoagulants; Z79.83 Long term (current) use of bisphosphonates; Z79.84 Long term (current) use of oral hypoglycemic drugs; Z79.891 Long term (current) use of opiate analgesic; Z98.890 Other specified postprocedural states; Z95.5 Presence of coronary angioplasty implant and graft; Z90.49 Acquired absence of other specified parts of digestive tract; Z80.9 Family history of malignant neoplasm, unspecified; Z82.49 Family history of ischemic heart disease and other diseases of the circulatory system
CPT/HCPCS: 64718; 36415; 82948; 85610; J0690; J2004; J2704; J7120